=== PATIENT | female | born 1935 | race Caucasian/White ===

== ENCOUNTER 2016-09-25 11:33 | Inpatient (IN) | payer MEDICARE, MEDICAID ==
[2016-09-25] MEDS ORDERED: Acetaminophen TAB* 325 MG ONE (11:41)
[2016-09-25] MEDS ORDERED: Acetaminophen SUPP* 650 MG SUPP ONE (11:43)
[2016-09-25] MEDS ORDERED: Piperac/Tazob 3.375 gm in NS* 3.375 GM/100 ML BAG IVPB ONE (11:46)
[2016-09-25] MEDS ORDERED: NS 0.9% 1000 ML* 1,000 ML IV ONE ×3 (11:47→14:50)
[2016-09-25] MEDS ORDERED: Acetaminophen SUPP* 650 MG SUPP PR ONE (11:48)
[2016-09-25 12:16] LABS: Hematocrit 47 % (35-47); Hemoglobin 14.7 g/dl (12.0-16.0); Mean Corpuscular HGB Conc 32 g/dl (31-36); Mean Corpuscular Hemoglobin 28 pg (27-31); Mean Corpuscular Volume 89 fL (80-97); Mean Platelet Volume 10 um3 (7.4-10.4); Red Blood Count 5.29 10^6/ul (4.0-5.4); Red Cell Distribution Width 15 % (10.5-15); White Blood Count 43.4 10^3/ul (3.5-10.8)
[2016-09-25 12:17] LABS: Add Diff/Slide Review? Slide Review Added; Comments Flag Yes; Urine Bacteria Absent (Absent); Urine Bilirubin Negative (Negative); Urine Glucose Negative (Negative); Urine Nitrite Negative (Negative)
[2016-09-25 12:27] LABS: BUN/Creatinine Ratio 39.2 (8-20); Calcium 9.4 mg/dL (8.6-10.3); EGFR African American 67.2 (>60); EGFR Non-African American 52.3 (>60); Globulin 3.8 g/dL (2-4); Potassium 3.4 mmol/L (3.5-5.0); Total Bilirubin 0.6 mg/dL (0.2-1.0); Total Protein 6.8 g/dL (6.4-8.9)
--- NOTE | 2016-09-25 12:28 | RAD ---
INDICATION: Fever. Altered mental status COMPARISON: October 29, 2013 TECHNIQUE: An AP portable view obtained at 1225 hours is submitted. FINDINGS: Bones/Soft Tissues: There are no acute bony findings. Cardiomediastinal: The cardiomediastinal silhouette is normal. Lungs: There is a right upper lobe infiltrate. There is also mild diffuse increased interstitial prominence which may reflect mild interstitial congestion. Pleura: There are no pleural effusions. Other: None IMPRESSION: ] RIGHT UPPER LOBE INFILTRATE. SUSPECT MILD INTERSTITIAL CONGESTION
[2016-09-25 12:34] LABS: Troponin I 0.14 ng/mL (<0.04)
[2016-09-25] MEDS: Vancomycin(*) 1,000 MG in NS 0.9% 250 ML* 250 ML IVPB ONE ×2 (12:43→14:48)
[2016-09-25] MEDS ORDERED: Aspirin Low Dose CHEW TAB* 81 MG PO ONE (12:46)
[2016-09-25 13:32] LABS: Magnesium 2.6 mg/dL (1.9-2.7); Phosphorus 3.3 mg/dL (2.5-5.0)
--- NOTE | 2016-09-25 13:49 | HP ---
H&P (Free Text) History and Physical: CRITICAL CARE MEDICINE DATE: 09/25/16 TIME: 1245 PRIMARY CARE PROVIDER: Unknown at this time REFERRING PROVIDER: Eyad REASON/CHIEF COMPLAINT: sepsis HISTORY OF PRESENT ILLNESS: 81 F, resident of [facility], presenting with declining functional status over the last week; usually ambulatory and talkative and this has declined with dec po intake. Mild temp 38.3C on admission , but tachy and tachpneic. Concerns for sepsis with bundle initiated and hospitalist alerted. CXR with early and somewhat diffuse disease, more consolidation starting in RUL. Pt mentation was quite impaired but has improved some in the ED already with fluids and O2. Admit to ICU. Prior DNR REVIEW OF SYSTEMS: As per HPI; limited from pt, but she denies pain at present PAST MEDICAL HISTORY: As per HPI. HTN, Lipids, PVD with L CEA, communicating hydrocephalus, dementia, CLL MEDICATIONS: Reviewed per records and MAR. ALLERGIES: Reviewed per records but unclear reactions SOCIAL HISTORY: Reviewed. FAMILY HISTORY: Noncontributory at present. PHYSICAL EXAM: Vital Signs: Reviewed. hr 110s, sbp 130s, RR up to 30, and sat 93% 4L (I increased to 15L due to flow needs) Neurologic: awake, mild alertness but can somewhat protect self. Takes significant promoting to cooperate; VALENTINE and non focal. HEENT: anicteric, perrl, mm dry Cardiovascular: tachy, distant Respiratory: diffuse rhonchi and end exp wheeze; rate fast but not working too hard Abdomen: soft, nt Extremities: warm to touch Access: per LABS: Reviewed. IMAGING: Reviewed. CXR as above. 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 There is some ant st depressions, likely demand and rate related currently but no acute injury current. MEDICATIONS: Reviewed. Recieved zosyn and vanco already ASSESSMENT: 81 F with multiple co-morbidites presenting with severe sepsis secondary to pna (maybe viral +/- bacterial), mod septic encephalopathy, acute hypoxic resp failure, demand ischemia with elevated troponin, acute renal failure (Cr >1, from baseline ~0.6 with low muscle mass), hypovolemic hypernatremia, lactic acidosis, CLL and dementia. PLAN: Neurologic: tolerating at present and on an improvement curve. continued support. Cardiovascular: Perfusion state better now but still with intravascular and interstitial volume depletion needing resuscitation. 2L NS in ED followed by 2 more liter LR at 200ml/hr should hopefully load her enough without overload. I am worried about fluid sequestration towards her lung parenchyma given her acute lung injury. follow up her needs. CAn check echo when stabilized and would f/u another ecg. keep asa, stain. Respiratory: Increased flow and place on HFO2 to alleviate wob that will tire her mechanics and with fluid sequestration worry. Hopefully she can avoid intubation but may need to overcome ailment. Nebs prn. Gastrointestinal: can tolerate diet when mental status allows but that could be a bit. utilize sup and f/u her nutrional needs as already behind from her outpt setting. Renal/Metabolic: acute insult, hopefully still just pre-renal at this point and can improve with IVF. Water> salt deficit but will correct with isotonic fluid for now. f/u I/os. Infectious Disease: add azithro for atypical coverage for now and f/u bc. If intubated would anticiapte bal. Sputum may not be a good specimen in her. Flu is negative but still seeming like a viral ailment. Support and continued azithro, zosyn and vanco for now. Hematology: underlying CLL with no changes needed. f/u counts. on asa. Endocrine: glu mildly up. no steroid need as of yet Musculoskeletal: progressive mobility Psych/Social: social work support and will look to update family Supportive and preventative care as ordered. Vaccine: apparently has a flu vaccine allergy SUP: ppi VTE prophylaxis: heparin Disposition: ICU Code Status: DNR Critical Care Time: 55min Dannielle Rosa DO
[2016-09-25] MEDS ORDERED: Haloperidol INJ IV/IM* 5 MG/ML AMP IV SLOW PU PRN (14:13)
[2016-09-25] MEDS ORDERED: Albuterol/Ipratropium NEB.SOL* Albuterol 2.5 MG/Ipratropium 0.5 MG 3 ML INH PRN (14:13)
[2016-09-25] MEDS ORDERED: Ondansetron INJ* 2 MG/ML VIAL IV PRN (14:13)
[2016-09-25] MEDS: Azithromycin IV(*) 500 MG in NS 0.9% 250 ML* 250 ML IVPB SCH (14:23)
--- NOTE | 2016-09-25 14:33 | PN ---
Progress Note - Progress Note Note: CRITICAL CARE MEDICINE DATE: 09/25/16 TIME: 1345 D/w Pts daughter at bedside and (Bruse - Proxy) via the phone. We discussed dx adn prognosis. Explained HFO2 need and hopeful to avoid MV, but they would currently accept this if needed but may decline eventually. Daughter is a bit more against intubation since she is concerned that her mothers quality of life is already so poor. They are in agreement with DNR and we may re -discuss intubation status later today with husbands anticipated arrival. They otherwise express understanding of plans of care. Disposition: ICU Code Status: DNR; trial intubation currently (but would like to avoid) Critical Care Time: additional 20min F. Marcial Rosa,
[2016-09-25] MEDS: Piperac/Tazob 3.375 gm in NS* 3.375 GM/100 ML BAG IVPB SCH ×2 (16:03→23:50)
[2016-09-25] MEDS: Heparin VIAL(*) 5000 UNITS/ML VIAL (FIVE THOUSAND) SUBCUT SCH (21:04)
[2016-09-25] MEDS: Morphine INJ* 2 MG/ML 1 ML CARPUJECT IV PRN (21:37)
[2016-09-26] MEDS: Morphine INJ* 2 MG/ML 1 ML CARPUJECT IV PRN ×2 (00:42→18:41)
[2016-09-26] MEDS: Heparin VIAL(*) 5000 UNITS/ML VIAL (FIVE THOUSAND) SUBCUT SCH ×3 (05:25→21:04)
[2016-09-26 05:46] LABS: Hematocrit 38 % (35-47); Hemoglobin 11.9 g/dl (12.0-16.0); Mean Corpuscular HGB Conc 32 g/dl (31-36); Mean Corpuscular Hemoglobin 28 pg (27-31); Mean Corpuscular Volume 88 fL (80-97); Mean Platelet Volume 9 um3 (7.4-10.4); Red Blood Count 4.24 10^6/ul (4.0-5.4); Red Cell Distribution Width 16 % (10.5-15); White Blood Count 31.8 10^3/ul (3.5-10.8)
[2016-09-26 05:54] LABS: Add Diff/Slide Review? Slide Review Added; Comments Flag Yes
[2016-09-26 06:01] LABS: BUN/Creatinine Ratio 35.3 (8-20); Calcium 8.1 mg/dL (8.6-10.3); EGFR African American 107.3 (>60); EGFR Non-African American 83.5 (>60); Phosphorus 1.9 mg/dL (2.5-5.0); Potassium 4.1 mmol/L (3.5-5.0)
[2016-09-26 06:08] LABS: Troponin I 0.08 ng/mL (<0.04)
[2016-09-26] MEDS: Piperac/Tazob 3.375 gm in NS* 3.375 GM/100 ML BAG IVPB SCH ×3 (07:42→23:27)
--- NOTE | 2016-09-26 09:18 | ED ---
Harish Akins Matthew, scribed for Earl Taylor MD on 09/25/16 at 1215 . HPI Febrile Illness - HPI Summary HPI Summary: A 81 y/o female presents to the ED by heriberto, because the patient is febrile and lethargic. The patient is non-verbal with no purposeful movements. She is normally A&Ox2. A compete HPI is unable to be obtained, because the patient is demented. The patient is a level 5 CAVEAT. - History of Current Complaint Hx From Patient Unobtainable Due To: Dementia - LEVEL 5 CAVEAT Timing: Constant Pain Intensity: 0 Associated Signs and Symptoms: Other: - Fever - Allergy/Home Medications Allergies/Adverse Reactions: Allergies Allergy/AdvReac Type Severity Reaction Status Date / Time Flu Virus Vaccine Allergy Unknown Verified 04/20/15 19:31 [From Flulaval] Reaction Details Thimerosal [From Flulaval] Allergy Unknown Verified 04/20/15 19:31 Reaction Details Tuberculin Purified Protein Allergy Unknown Verified 04/20/15 19:31 Derivat Reaction Details Home Medications: Home Medications Aricept 10 mg PO DAILY 09/25/16 [History Confirmed 09/25/16] Aspirin [Aspirin Childrens] 81 mg PO DAILY 09/25/16 [History Confirmed 09/25/16] Citalopram TAB* [Celexa TAB*] 10 mg PO DAILY 09/25/16 [History Confirmed ] Cyanocobalamin INJ * [Vitamin B12 INJ *] 1,000 mcg IM MONTHLY 09/25/16 [History Confirmed 09/25/16] Multiple Vitamins W/ Minerals [[facility] Formul] 1 tab PO DAILY [History Confirmed 09/25/16] PMH/Surg Hx/FS Hx/Imm Hx Endocrine/Hematology History: Denies: Hx Bone Marrow Disease, Hx Diabetes, Hx Sickle Cell Disease, Hx Thyroid Disease, Hx Anemia Cardiovascular History: Reports: Hx Hypertension Denies: Hx Angina, Hx Cardiomegaly, Hx Congestive Heart Failure, Hx Coronary Artery Disease, Hx Pacemaker/ICD, Hx Peripheral Vascular Disease, Hx Rheumatic Fever, Hx Valvular Heart Disease, Other Cardiovascular Problems/Disorders Respiratory History: Denies: Hx Asthma, Hx Pulmonary Edema, Hx Pulmonary Embolism, Hx Sleep Apnea , Other Respiratory Problems/Disorders GI History: Denies: Hx Cirrhosis, Hx Crohn's Disease, Hx Gastroesophageal Reflux Disease , Hx Hiatal Hernia, Hx Irritable Bowel, Hx Jaundice, Hx Ulcer, Other GI Disorders History: Denies: Hx Dialysis, Hx Kidney Infection, Hx Kidney Stones, Hx Renal Disease , Other Problems/Disorders Musculoskeletal History: Denies: Hx Arthritis, Hx Bursitis, Hx Tendonitis, Other Musculoskeletal History Sensory History: Reports: Hx Contacts or Glasses Denies: Hx Cataracts, Hx Glaucoma, Hx Hearing Aid Opthamlomology History: Reports: Hx Contacts or Glasses Denies: Hx Cataracts, Hx Glaucoma Neurological History: Reports: Other Neuro Impairments/Disorders - numbness on feet and legs Denies: Hx Headaches, Hx Migraine, Hx Nerve Disease, Hx Seizures Psychiatric History: Reports: Hx Depression Denies: Hx Anxiety, Hx Panic Disorder - Cancer History Hx Chemotherapy: No - Surgical History Surgery Procedure, Year, and Place: NECK SURGERY 2002 Hx Anesthesia Reactions: No Infectious Disease History: No Infectious Disease History: Reports: Hx Shingles - years ago Denies: Hx Hepatitis, Traveled Outside the [place] in Last 30 Days - Family History Family History: No FHx of malignant hyperthermia. No FHx of anesthesia reaction - Social History Alcohol Use: None Alcohol Amount: occ. Substance Use Type: Reports: None Smoking Status (MU): Former Smoker Review of Systems - ROS Summary Review of Systems Summary: A complete HPI is unable to be obtained, because the patient is non-verbal with dementia. The patient is a LEVEL 5 CAVEAT. All Other Systems Reviewed And Are Negative: Yes Physical Exam - Summary Physical Exam Summary: GENERAL: The patient is ill-appearing, warm, diaphoretic HEENT: Head is normocephalic, atraumatic, pupils 2mm bilaterally, mucous membranes moist, no erythema, no discharge, no lesions, neck is supple, trachea is midline, no JVD CARDIAC: Regular rhythm and tachycardic, S1, S2, no rub, no murmur, no gallop, 2 + radial and pedal pulses bilaterally RESPIRATORY: Clear to auscultation bilaterally with no rales, rhonchi, or wheezes, non-tender ABDOMEN: Bowel sounds positive, no bruit, soft, non-tender, no CVA tenderness EXTREMITIES: No edema, moving all extremities in a grossly normal manner NEUROLOGICAL: The patient tracks movements, but has non purposeful movements. She is non-verbal. Triage Information Reviewed: Yes Vital Signs On Initial Exam: Initial Vitals Temp Pulse Resp BP Pulse Ox 101 F 129 31 157/92 91 09/25/16 11:35 09/25/16 11:35 09/25/16 11:35 09/25/16 11:35 09/25/16 11:35 Vital Signs Reviewed: Yes Diagnostics - Vital Signs Vital Signs Temp Pulse Resp BP Pulse Ox 09/25/16 11:47 90 09/25/16 11:35 101 F 129 31 157/92 91 - Laboratory Lab Results: Lab Results 09/25/16 09/25/16 09/25/16 Range/Units 11:51 11:51 11:51 WBC 43.4 H (3.5-10.8) 10^3/ul RBC 5.29 (4.0-5.4) 10^6/ul Hgb 14.7 (12.0-16.0) g/dl Hct 47 (35-47) % MCV 89 (80-97) fL MCH 28 (27-31) pg MCHC 32 (31-36) g/dl RDW 15 (10.5-15) % Plt Count 286 (150-450) 10^3/ul MPV 10 (7.4-10.4) um3 Neut % (Auto) 25.7 L (38-83) % Lymph % (Auto) 72.1 H (25-47) % Hyde % (Auto) 2.2 (1-9) % Eos % (Auto) 0 (0-6) % Baso % (Auto) 0 (0-2) % Absolute Neuts (auto) 11.1 H (1.5-7.7) 10^3/ul Absolute Lymphs (auto) 31.3 H (1.0-4.8) 10^3/ul Absolute Monos (auto) 1.0 H (0-0.8) 10^3/ul Absolute Eos (auto) 0 (0-0.6) 10^3/ul Absolute Basos (auto) 0 (0-0.2) 10^3/ul Absolute Nucleated RBC 0.05 10^3/ul Nucleated RBC % 0.1 INR (Anticoag Therapy) 1.29 H (0.89-1.11) APTT 26.8 (26.0-36.3) seconds VBG pH (7.33-7.43) VBG pCO2 (41-51) mmHg VBG pO2 (35-45) mmHg VBG HCO3 (24-28) mmol/L VBG O2 Saturation (70-80) % VBG Base Excess (0-4) Sodium (133-145) mmol/L Potassium (3.5-5.0) mmol/L Chloride (101-111) mmol/L Carbon Dioxide (22-32) mmol/L Anion Gap (2-11) mmol/L BUN (6-24) mg/dL Creatinine (0.51-0.95) mg/dL Est GFR ( Amer) (>60) Est GFR (Non-Af Amer) (>60) BUN/Creatinine Ratio (8-20) Glucose (70-100) mg/dL Lactic Acid (0.5-2.0) mmol/L Calcium (8.6-10.3) mg/dL Phosphorus (2.5-5.0) mg/dL Magnesium (1.9-2.7) mg/dL Total Bilirubin (0.2-1.0) mg/dL AST (13-39) U/L ALT (7-52) U/L Alkaline Phosphatase (34-104) U/L Troponin I (<0.04) ng/mL B-Natriuretic Peptide ( - 100) pg/mL Total Protein (6.4-8.9) g/dL Albumin (3.2-5.2) g/dL Globulin (2-4) g/dL Albumin/Globulin Ratio (1-3) Urine Color Kira Urine Appearance Cloudy Urine pH 5.0 (5-9) Ur Specific Vernon 1.028 (1.010-1.030) Urine Protein 2+(100 mg/dl) H (Negative) Urine Ketones 1+ H (Negative) Urine Blood 2+ H (Negative) Urine Nitrate Negative (Negative) Urine Bilirubin Negative (Negative) Urine Urobilinogen Negative (Negative) Ur Leukocyte Esterase Negative (Negative) Urine WBC (Auto) 2+(11-20/hpf) H (Absent) Urine RBC (Auto) 3+(>10/hpf) H (Absent) Urine Bacteria Absent (Absent) Urine Glucose Negative (Negative) Urine Ascorbic Acid * H (Negative) Influenza A (Rapid) (Negative) Influenza B (Rapid) (Negative) 09/25/16 09/25/1617 Range/Units 11:51 11:51 11:51 WBC (3.5-10.8) 10^3/ul RBC (4.0-5.4) 10^6/ul Hgb (12.0-16.0) g/dl Hct (35-47) % MCV (80-97) fL MCH (27-31) pg MCHC (31-36) g/dl RDW (10.5-15) % Plt Count (150-450) 10^3/ul MPV (7.4-10.4) um3 Neut % (Auto) (38-83) % Lymph % (Auto) (25-47) % Hyde % (Auto) (1-9) % Eos % (Auto) (0-6) % Baso % (Auto) (0-2) % Absolute Neuts (auto) (1.5-7.7) 10^3/ul Absolute Lymphs (auto) (1.0-4.8) 10^3/ul Absolute Monos (auto) (0-0.8) 10^3/ul Absolute Eos (auto) (0-0.6) 10^3/ul Absolute Basos (auto) (0-0.2) 10^3/ul Absolute Nucleated RBC 10^3/ul Nucleated RBC % INR (Anticoag Therapy) (0.89-1.11) APTT (26.0-36.3) seconds VBG pH (7.33-7.43) VBG pCO2 (41-51) mmHg VBG pO2 (35-45) mmHg VBG HCO3 (24-28) mmol/L VBG O2 Saturation (70-80) % VBG Base Excess (0-4) Sodium 152 H (133-145) mmol/L Potassium 3.4 L (3.5-5.0) mmol/L Chloride 112 H (101-111) mmol/L Carbon Dioxide 27 (22-32) mmol/L Anion Gap 13 H (2-11) mmol/L BUN 40 H (6-24) mg/dL Creatinine 1.02 H (0.51-0.95) mg/dL Est GFR ( Amer) 67.2 (>60) Est GFR (Non-Af Amer) 52.3 (>60) BUN/Creatinine Ratio 39.2 H (8-20) Glucose 137 H (70-100) mg/dL Lactic Acid 3.0 H* (0.5-2.0) mmol/L Calcium 9.4 (8.6-10.3) mg/dL Phosphorus 3.3 (2.5-5.0) mg/dL Magnesium 2.6 (1.9-2.7) mg/dL Total Bilirubin 0.60 (0.2-1.0) mg/dL AST 18 (13-39) U/L ALT 12 (7-52) U/L Alkaline Phosphatase 66 (34-104) U/L Troponin I 0.14 H* (<0.04) ng/mL B-Natriuretic Peptide 458 H ( - 100) pg/mL Total Protein 6.8 (6.4-8.9) g/dL Albumin 3.0 L (3.2-5.2) g/dL Globulin 3.8 (2-4) g/dL Albumin/Globulin Ratio 0.8 L (1-3) Urine Color Urine Appearance Urine pH (5-9) Ur Specific Vernon (1.010-1.030) Urine Protein (Negative) Urine Ketones (Negative) Urine Blood (Negative) Urine Nitrate (Negative) Urine Bilirubin (Negative) Urine Urobilinogen (Negative) Ur Leukocyte Esterase (Negative) Urine WBC (Auto) (Absent) Urine RBC (Auto) (Absent) Urine Bacteria (Absent) Urine Glucose (Negative) Urine Ascorbic Acid (Negative) Influenza A (Rapid) (Negative) Influenza B (Rapid) (Negative) 09/25/16 09/25/16 Range/Units 12:27 13:05 WBC (3.5-10.8) 10^3/ul RBC (4.0-5.4) 10^6/ul Hgb (12.0-16.0) g/dl Hct (35-47) % MCV (80-97) fL MCH (27-31) pg MCHC (31-36) g/dl RDW (10.5-15) % Plt Count (150-450) 10^3/ul MPV (7.4-10.4) um3 Neut % (Auto) (38-83) % Lymph % (Auto) (25-47) % Hyde % (Auto) (1-9) % Eos % (Auto) (0-6) % Baso % (Auto) (0-2) % Absolute Neuts (auto) (1.5-7.7) 10^3/ul Absolute Lymphs (auto) (1.0-4.8) 10^3/ul Absolute Monos (auto) (0-0.8) 10^3/ul Absolute Eos (auto) (0-0.6) 10^3/ul Absolute Basos (auto) (0-0.2) 10^3/ul Absolute Nucleated RBC 10^3/ul Nucleated RBC % INR (Anticoag Therapy) (0.89-1.11) APTT (26.0-36.3) seconds VBG pH 7.45 H (7.33-7.43) VBG pCO2 39 L (41-51) mmHg VBG pO2 57 H (35-45) mmHg VBG HCO3 27.0 (24-28) mmol/L VBG O2 Saturation 91.0 H (70-80) % VBG Base Excess 3.0 (0-4) Sodium (133-145) mmol/L Potassium (3.5-5.0) mmol/L Chloride (101-111) mmol/L Carbon Dioxide (22-32) mmol/L Anion Gap (2-11) mmol/L BUN (6-24) mg/dL Creatinine (0.51-0.95) mg/dL Est GFR ( Amer) (>60) Est GFR (Non-Af Amer) (>60) BUN/Creatinine Ratio (8-20) Glucose (70-100) mg/dL Lactic Acid (0.5-2.0) mmol/L Calcium (8.6-10.3) mg/dL Phosphorus (2.5-5.0) mg/dL Magnesium (1.9-2.7) mg/dL Total Bilirubin (0.2-1.0) mg/dL AST (13-39) U/L ALT (7-52) U/L Alkaline Phosphatase (34-104) U/L Troponin I (<0.04) ng/mL B-Natriuretic Peptide ( - 100) pg/mL Total Protein (6.4-8.9) g/dL Albumin (3.2-5.2) g/dL Globulin (2-4) g/dL Albumin/Globulin Ratio (1-3) Urine Color Urine Appearance Urine pH (5-9) Ur Specific Vernon (1.010-1.030) Urine Protein (Negative) Urine Ketones (Negative) Urine Blood (Negative) Urine Nitrate (Negative) Urine Bilirubin (Negative) Urine Urobilinogen (Negative) Ur Leukocyte Esterase (Negative) Urine WBC (Auto) (Absent) Urine RBC (Auto) (Absent) Urine Bacteria (Absent) Urine Glucose (Negative) Urine Ascorbic Acid (Negative) Influenza A (Rapid) Negative (Negative) Influenza B (Rapid) Negative (Negative) Result Diagrams: 09/26/16 05:30 09/26/16 05:30 Lab Statement: Any lab studies that have been ordered have been reviewed, and results considered in the medical decision making process. - Radiology CXR Xray Interpretation: Positive (See Comments) - IMPRESSION: ] RIGHT UPPER LOBE INFILTRATE. SUSPECT MILD INTERSTITIAL CONGESTION Radiology Interpretation Completed By: Radiologist - EKG 11:47 Cardiac Rate: Tachycardia - 129 bpm EKG Rhythm: Sinus Tachycardia EKG Interpretation: mild ST depression in V2, V3, V4, V5; No ST elevation Re-Evaluation - Re-Evaluation First Eval Re-Evaluation Time: 12:30 Change: Improved Comment: After 1L of fluid, the patient is verbal. She now knows her name and where she is from. Course/Dx - Diagnoses Provider Diagnoses: Sepsis, uti, cml - Provider Notifications Discussed Care Of Patient With: Dr. Mayo (Hospitalist) at 12:35 -- Notified of patient's history and recommends Dr. Rosa see's the patient. Discharge - Discharge Plan Condition: Stable Disposition: ADMITTED TO [facility] The documentation as recorded by the Harish soto Matthew accurately reflects the service I personally performed and the decisions made by me, Earl Taylor MD.
[2016-09-26] MEDS ORDERED: Potassium Phosphate IV* 15 MMOLE in NS 0.9% 250 ML* 250 ML IVPB ONE (10:52)
[2016-09-26] MEDS: Albuterol/Ipratropium NEB.SOL* Albuterol 2.5 MG/Ipratropium 0.5 MG 3 ML INH SCH ×2 (11:11→19:11)
--- NOTE | 2016-09-26 11:18 | PN ---
Progress Note - Progress Note Note: CRITICAL CARE MEDICINE DATE: 09/26/16 TIME: 1005 PRIMARY CARE PROVIDER: Dr. Rodriguez SUBJECTIVE: Patient seen and examined. Son present and updated. Pt w/o complaints. Denies sob. PHYSICAL EXAM: Vital Signs: Reviewed. hr 90s, sbp 130s, RR in low 20s, and sat 94% 30L 80%. voiding overnight Neurologic: awake, mild alteredness, and baseline dementia. HEENT: anicteric, perrl, mmm Cardiovascular: distant Respiratory: still with diffuse rhonchi and dec sounds on right upper; exp wheeze Abdomen: soft, nt Extremities: warm to touch Access: per LABS: Reviewed. IMAGING: Reviewed. MEDICATIONS: Reviewed. ASSESSMENT: 81 F Severe sepsis secondary to pna (viral > bacterial) Mod septic encephalopathy - improved some Acute hypoxic resp failure - stabilized Elevated troponin with type 2 ischemia - improved Acute renal failure, prerenal, improved Hypovolemic hypernatremia - improved Lactic acidosis - cleared CLL Dementia PLAN: Neurologic: tolerating at present and on an improved. continued support. dc haldol. resume celexa and aricept tomorrow Cardiovascular: Perfusion stable. Intravasc vol resuscitated and interstitial at optivolemic state and will allow automobilization with flow phase hopefully. Can intake po water. Echo pending to eval. asa, stain. Respiratory: Maintain on high flow today with a slwo wean to maintain her support given her baseline functional status. Certainly has blossomed from a resp standpoint post fluid and again allow her to mobilze versus forced diuresis perhaps soon. Flutter valve tx. Add nebs and even steroids to combat her wheeze associated and will need significant pulm clearance and needs to maintain recruitment. If falling short, may need early intermittent ppv with cpap/downs flow or even nocturnal bipap. f/u. Gastrointestinal: tolerate clear diet with healthy water intake hopefully today. Look to advance diet and nutritional needs as tolerable tomorrow. Renal/Metabolic: better. f/u water intake and uout mobilization. Infectious Disease: Still seeming viral like ailment, but certainly treating for pna, with zosyn and azithro. CAn hold off on further vanco given neg mrsa screen and lower probability, but if fever or worse, would consider resumption. Hematology: underlying CLL with no acute needs there. on asa. Endocrine: glu ok. would give a course of steroids to combat wheeze associated with pulm clearance and reactive airways currently. Musculoskeletal: progressive mobility Psych/Social: social work support. son updated at length, he expressed understanding and appreciation. Supportive and preventative care as ordered. SUP: po VTE prophylaxis: heparin Disposition: ICU Code Status: DNR; ok for trial intubation Critical Care Time: 45min FLiang Rosa DO
--- NOTE | 2016-09-26 11:48 | ECHO ---
Patient: LARRY ANDRES V [facility] Rec#: [id number] : 1935 Date: 09/26/2016 Age: 81y Height: 152.4 cm / 60.0 in Weight: 62.1 kg / 136.9 lbs Sex: F BSA: 1.59 Room#: ICU 7 Admit Date#: 09/25/2016 Type: Inpatient Referring: Marv oRsa Reading: Susie Urbano MD Exploration Driller: Mary Tran RN RDCS CC: Napoleon Rodriguez MD Transthoracic Echocardiogram Indication: Sepsis, elevated troponin levels BP: 154/70 HR: 99 Rhythm: NSR with PACs Findings History: HTN, dyslipidemia, carotid artery disease, CLL, dementia Technical Comments: The study quality is fair. Left Ventricle: The left ventricular chamber size is normal. Septal wall hypertrophy is observed. There is a focal wall motion abnormality present.The inferior/posterior wall is severely hypokineitic to akinetic at the base, seen on parasternal and apical 2 and 3 chamber views. There is mildly decreased left ventricular systolic function. The estimated ejection fraction is 40-45%. There is an E to A reversal in the mitral valve flow pattern suggestive of diastolic dysfunction. Left Atrium: The left atrial chamber size is normal. Right Ventricle: The right ventricular chamber size and systolic function are within normal limits. The right ventricle wall thickness is mildly increased. Right Atrium: The right atrial cavity size is normal. The interatrial septum appears lipomatous. Aortic Valve: The aortic valve structure is not well visualized. The aortic valve leaflets are moderately thickened. There is mild to moderate aortic regurgitation. P 1/2 is suggestive of moderate AI, but color Doppler looks mild and no reversal of low in the descending aorta. There is no evidence of aortic stenosis. The measured aortic regurgitation pressure half-time is 393 msec. Mitral Valve: There is mitral annular calcification. The mitral valve leaflets are mildly thickened. There is mild mitral regurgitation. There is no evidence of mitral stenosis. Tricuspid Valve: The tricuspid valve leaflets are normal. There is trace tricuspid regurgitation. Unable to estimate the right ventricular systolic pressure. Pulmonic Valve: The pulmonic valve structure is not well visualized. Pericardium: There is a small pericardial effusion. There are no signs of significant hemodynamic compromise. The pericardial effusion is seen adjacent to the right ventricle. A pericardial fat pad is visualized. Aorta: There is no dilatation of the ascending aorta. There is no dilatation of the aortic arch. The aortic root is normal in size. Pulmonary Artery: The main pulmonary artery is not well visualized. Venous: The inferior vena cava is dilated. There is a greater than 50% respiratory change in the inferior vena cava dimension. Conclusions The left ventricular chamber size is normal with septal wall hypertrophy. .The inferior/posterior wall is severely hypokineitic to akinetic at the base, the rest of the myocardium shows normal wall motion and contractility. The estimated ejection fraction is 40-45%. There is an E to A reversal in the mitral valve flow pattern suggestive of diastolic dysfunction. Right ventricular hypertrophy with nromal systolic function. There is mild to moderate aortic regurgitation and aortic valve sclerosis. There is mild mitral regurgitation. There is a small pericardial effusion, no evidence of filling compromise. The inferior vena cava is dilated. No prior echo available to compare. Measurements Name Value Normal Range RVDdMajor (2D) 2.2 cm (2.2 - 4.4) RVAW (2D) 0.7 cm (0.2 - 0.5) RAd ISD 4CH 3.8 cm (3.4 - 4.9) RA (A4C)W 3.1 cm (2.9 - 4.6) IVSd (2D) 1.2 cm (0.6 - 1) LVPWd (2D) 1 cm (0.6 - 1) LVIDd (2D) 3.7 cm (3.6 - 5.4) LVIDs (2D) 2.9 cm - LV FS (2D) 22 % (25 - 45) Aortic Annulus 1.8 cm (1.4 - 2.6) Ao root diameter (2D) 2.7 cm (2.1 - 3.5) Ascending Ao 2.6 cm (2.1 - 3.4) Aortic arch 2.3 cm (1.8 - 3.4) LA dimension (AP) 2D 3.6 cm (2.3 - 3.8) LAd ISD 4CH 5 cm (2.9 - 5.3) LA ISD 4CH W 3.2 cm (2.5 - 4.5) Name Value Normal Range LA ESV SP 4CH (A/L) 31 ml - LA ESV SP 2CH (A/L) 32 ml - LA ESV BP (A/L) 34 ml - LA ESV BP (A/L) index 21.3 ml/m2 - LA ESV SP 4CH (MOD) 29 ml - LA ESV SP 2CH (MOD) 30 ml - Name Value Normal Range MV E-wave Vmax 0.65 m/sec - MV deceleration time 208 msec - MV A-wave Vmax 1 m/sec - MV E:A ratio 0.63 ratio - LV septal e' Vmax 0.06 m/sec - LV lateral e' Vmax 0.09 m/sec - LV E:e' septal ratio 10.8 ratio - LV E:e' lateral ratio 7.2 ratio - Name Value Normal Range AV Vmax 1.5 m/sec - LVOT Vmax 1.3 m/sec - AR PHT 393 msec - ZACHARY Vmax 0.68 m/sec - Name Value Normal Range IVC diameter 2.4 cm - Name Value Normal Range PV Vmax 0.88 m/sec -
[2016-09-26] MEDS: predniSONE TAB* 20 MG PO SCH (11:53)
[2016-09-26] MEDS: Azithromycin IV(*) 500 MG in NS 0.9% 250 ML* 250 ML IVPB SCH (13:43)
[2016-09-27] MEDS: Morphine INJ* 2 MG/ML 1 ML CARPUJECT IV PRN ×2 (02:15→18:10)
[2016-09-27 05:27] LABS: Hematocrit 38 % (35-47); Hemoglobin 11.8 g/dl (12.0-16.0); Mean Corpuscular HGB Conc 31 g/dl (31-36); Mean Corpuscular Hemoglobin 28 pg (27-31); Mean Corpuscular Volume 88 fL (80-97); Mean Platelet Volume 10 um3 (7.4-10.4); Red Blood Count 4.29 10^6/ul (4.0-5.4); Red Cell Distribution Width 16 % (10.5-15)
[2016-09-27 05:40] LABS: BUN/Creatinine Ratio 29.2 (8-20); Calcium 8.2 mg/dL (8.6-10.3); EGFR African American 113.1 (>60); EGFR Non-African American 87.9 (>60); Magnesium 2.1 mg/dL (1.9-2.7); Phosphorus 2.5 mg/dL (2.5-5.0); Potassium 3.8 mmol/L (3.5-5.0)
[2016-09-27] MEDS: Heparin VIAL(*) 5000 UNITS/ML VIAL (FIVE THOUSAND) SUBCUT SCH ×3 (05:41→21:58)
[2016-09-27 06:02] LABS: Comments Flag Yes
[2016-09-27 06:03] LABS: Add Diff/Slide Review? Slide Review Added; White Blood Count 34.2 10^3/ul (3.5-10.8)
[2016-09-27 06:30] LABS: Macrocytosis 2+; Toxic Granulation 2+
[2016-09-27 06:31] LABS: Microcytosis 1+
[2016-09-27] MEDS: Albuterol/Ipratropium NEB.SOL* Albuterol 2.5 MG/Ipratropium 0.5 MG 3 ML INH SCH ×3 (07:24→20:04)
[2016-09-27] MEDS: Piperac/Tazob 3.375 gm in NS* 3.375 GM/100 ML BAG IVPB SCH ×3 (08:37→23:34)
[2016-09-27] MEDS: Donepezil TAB* 5 MG PO SCH (08:56)
[2016-09-27] MEDS: Citalopram TAB* 10 MG PO SCH (08:57)
[2016-09-27] MEDS: predniSONE TAB* 20 MG PO SCH (08:57)
[2016-09-27] MEDS ORDERED: Metolazone TAB* 5 MG PO ONE (11:47)
[2016-09-27] MEDS ORDERED: Potassium Chlor TAB* 20 MEQ TAB.ER PO ONE (11:49)
--- NOTE | 2016-09-27 11:59 | PN ---
Progress Note - Progress Note Note: CRITICAL CARE MEDICINE DATE: 09/27/16 TIME: 1015 SUBJECTIVE: Patient seen and examined. better again. PHYSICAL EXAM: Vital Signs: Reviewed. stable. Neurologic: awake, more alert. baseline dementia. HEENT: anicteric, perrl, mmm Cardiovascular: distant Respiratory: still with rhonchi and dec sounds; less wheeze Abdomen: soft, nt Extremities: warm to touch Access: per LABS: Reviewed. IMAGING: Reviewed. MEDICATIONS: Reviewed. ASSESSMENT: 81 F Severe sepsis secondary to pna (viral > bacterial) Mod septic encephalopathy - improved some Acute hypoxic resp failure - stabilized Elevated troponin with type 2 ischemia - improved Acute renal failure, prerenal, improved Hypovolemic hypernatremia - improved Lactic acidosis - cleared CLL Dementia PLAN: Neurologic: stable. home rx celexa and aricept Cardiovascular: Perfusion stable. Intravasc vol stable. bit of interstial fluid we can try to mobilize further today. Lasix and zaroxyln given remaining Na overload. Can drink fluid still. On asa, stain. echo revealing old inf aliment in concordance with ecg and component of AI. Respiratory: Maintain on high flow and weaning slowly. diuertic today. flutter. Need to mobilize. Not a great canidate for ppv recruitment with cpap although it may benefit her as she needs to prevent atelectasis. Try lasix instead. Steroids may be giving some benefit, but this is going to take time. Again, probably more viral. Gastrointestinal: tolerate clear diet and can advance as able to tolerate although would prefer she continues with liquids today. Renal/Metabolic: better. f/u mobilization. Infectious Disease: zosynx3/7 and azithro x3/5 day. cultures negative Hematology: underlying CLL with no acute needs there. on asa. Endocrine: glu ok. steroids pulse. Musculoskeletal: progressive mobility. pt eval Psych/Social: social work support. son updated via phone. Supportive and preventative care as ordered. SUP: po VTE prophylaxis: heparin Disposition: ICU for a few more days likely due to slow weaning. Code Status: DNR; ok for trial intubation Critical Care Time: 45min FLiang Rosa DO
[2016-09-27] MEDS ORDERED: Furosemide IV* 10 MG/ML VIAL (40 MG) IV SLOW PU ONE (13:00)
[2016-09-27] MEDS: Azithromycin IV(*) 500 MG in NS 0.9% 250 ML* 250 ML IVPB SCH (13:26)
[2016-09-28] MEDS: Morphine INJ* 2 MG/ML 1 ML CARPUJECT IV PRN ×3 (05:04→15:34)
[2016-09-28 05:12] LABS: Hematocrit 37 % (35-47); Hemoglobin 11.8 g/dl (12.0-16.0); Mean Corpuscular HGB Conc 32 g/dl (31-36); Mean Corpuscular Hemoglobin 28 pg (27-31); Mean Corpuscular Volume 87 fL (80-97); Mean Platelet Volume 10 um3 (7.4-10.4); Red Blood Count 4.27 10^6/ul (4.0-5.4); Red Cell Distribution Width 15 % (10.5-15)
[2016-09-28 05:13] LABS: Comments Flag Yes; White Blood Count 42.5 10^3/ul (3.5-10.8)
[2016-09-28 05:14] LABS: Add Diff/Slide Review? Slide Review Added
[2016-09-28 05:19] LABS: Albumin 2.4 g/dL (3.2-5.2); BUN/Creatinine Ratio 24.3 (8-20); Calcium 8.3 mg/dL (8.6-10.3); EGFR African American 97.4 (>60); EGFR Non-African American 75.7 (>60); Globulin 3.3 g/dL (2-4); Phosphorus 2.7 mg/dL (2.5-5.0); Total Bilirubin 0.6 mg/dL (0.2-1.0); Total Protein 5.7 g/dL (6.4-8.9)
[2016-09-28 05:24] LABS: Potassium 3.2 mmol/L (3.5-5.0)
[2016-09-28] MEDS: Heparin VIAL(*) 5000 UNITS/ML VIAL (FIVE THOUSAND) SUBCUT SCH ×3 (05:39→22:09)
[2016-09-28] MEDS: Albuterol/Ipratropium NEB.SOL* Albuterol 2.5 MG/Ipratropium 0.5 MG 3 ML INH SCH ×3 (07:32→19:37)
--- NOTE | 2016-09-28 07:34 | PN ---
Progress Note - Progress Note Note: Progress Note - Critical Care 24 hour events/significant events: -remains on HF overnight, noted to gradually becoming more hypoxic -now on 100% 40Lpm HF -sats upper 80s, rr 20-30 overnight, not tachypneic -not febrile, intermittent loose stool, incontinent -she awakens now, not very verbal, falls back asleep Vitals: Vital Signs: Vital Signs Temp 99.7 F 09/28/16 07:48 Pulse 82 09/28/16 07:35 Resp 90 09/28/16 07:35 BP 151/79 09/28/16 07:00 Pulse Ox 90 09/28/16 07:35 Intake & Output 09/27/16 09/28/16 09/28/16 18:59 06:59 18:59 Intake Total 1080 663 Balance 1080 663 Weight 141 lb 8.588 oz Intake: IV Fluids 563 NS (0.9%) 563 IVPB 190 NS (0.9%) 190 Oral 890 100 Other: Estimated Void Large Large # Bowel Movements 1 Estimated Stool Amount Small Medium # Voids 1 O2/Vent: HF 80% 30Lpm Medications: Acetaminophen (Tylenol Tab*) 650 mg PO Q4H PRN PRN Reason: FEVER/PAIN Albuterol/Ipratropium (Duoneb Neb.Sophia*) 1 neb INH Q4H PRN PRN Reason: SOB/WHEEZING Albuterol/Ipratropium (Duoneb Neb.Sophia*) 1 neb INH RT.TID [facility] Last Admin: 09/28/16 07:32 Dose: 1 neb Citalopram Hydrobromide (Celexa Tab*) 10 mg PO DAILY [facility] Last Admin: 09/27/16 08:57 Dose: 10 mg Donepezil HCl (Aricept Tab*) 10 mg PO DAILY [facility] Last Admin: 09/27/16 08:56 Dose: 10 mg Heparin Sodium (Porcine) (Heparin Vial(*)) 5,000 units SUBCUT Q8HR [facility] Last Admin: 09/28/16 05:39 Dose: 5,000 units Heparin Sodium (Porcine) (Heparin Flush Picc/Ml/Cvc(*)) 1 - 3 ml FLUSH 0600, 1800 [facility] PRN Reason: Protocol Last Admin: 09/28/16 05:32 Dose: Not Given Azithromycin 500 mg/ Sodium (Chloride) 250 mls @ 250 mls/hr IVPB Q24H [facility] Last Admin: 09/27/16 13:26 Dose: 250 mls/hr Piperacillin Sod/Tazobactam Sod (Zosyn 3.375 Gm In Ns Premix*) 3.375 gm in 100 mls @ 25 mls/hr IVPB Q8H [facility] Last Admin: 09/27/16 23:34 Dose: 25 mls/hr Morphine Sulfate (Morphine Inj (Syringe)*) 2 mg IV Q2H PRN PRN Reason: PAIN - MILD Last Admin: 09/28/16 05:04 Dose: 2 mg Ondansetron HCl (Zofran Inj*) 4 mg IV Q6H PRN PRN Reason: NAUSEA Prednisone (Deltasone Tab*) 40 mg PO DAILY [facility] Last Admin: 09/27/16 08:57 Dose: 40 mg Physical Exam: General - awakens, no distress, not diaphoretic, on HF now, nonverbal, moves spontaneously HEENT - no pallor, no icterus, moist mucous membranes Neck - no stridor, no jvd CVS - normal rate, normal rhythm, no murmur Resp - bilateral air entry, no rhales, no wheeze, no distress, no acc muscle use Abdomen - soft, nontender, nondistended, no rebound, bowel sounds present Ext - pulses+, warm, no edema Skin - intact, no breakdown, no dryness Neuro - awakens, moves all ext, sleepy but arousable with verbal and tactile stimuli Labs: Laboratory Results - last 24 hr 09/28/16 09/28/16 04:50 04:50 WBC 42.5 H RBC 4.27 Hgb 11.8 L Hct 37 MCV 87 MCH 28 MCHC 32 RDW 15 Plt Count 174 MPV 10 Neut % (Auto) 46.1 Lymph % (Auto) 52.3 H Lewis % (Auto) 1.5 Eos % (Auto) 0 Baso % (Auto) 0.1 Absolute Neuts (auto) 19.6 H Absolute Lymphs (auto) 22.2 H Absolute Monos (auto) 0.6 Absolute Eos (auto) 0 Absolute Basos (auto) 0.1 Absolute Nucleated RBC 0.06 Nucleated RBC % 0.2 Sodium 144 Potassium 3.2 L Chloride 105 Carbon Dioxide 31 Anion Gap 8 BUN 18 Creatinine 0.74 Est GFR ( Amer) 97.4 Est GFR (Non-Af Amer) 75.7 BUN/Creatinine Ratio 24.3 H Glucose 120 H Calcium 8.3 L Phosphorus 2.7 Magnesium 2.0 Total Bilirubin 0.60 AST 56 H ALT 32 Alkaline Phosphatase 124 H Total Protein 5.7 L Albumin 2.4 L Globulin 3.3 Albumin/Globulin Ratio 0.7 L Imaging: cxr 09/28 - bilateral multiple patchy infiltrates+, no effusion/ptx Assessment: 81y F admitted for hypoxia and cough. -Acute Hypoxic Respiratory Failure -ARDS -Pneumonia, suspected viral etiology -Severe Sepsis -Encephelopathy, metabolic/toxic/septic -EMILY, improved -NSTEMI, type 2? demand ischemia in setting of sepsis -Newly diagnosed mild-mod LV systolic dysfunction -CLL -Baseline Dementia Plan: Neuro - as per nursing, no change in status, no worsening lethargy. need to obtain baseline level once family arrives. cont aricept. neuro checks q4h. fall prec CVS - hemodyn stable, no hypotension noted. lasix x1 given yesterday. appears euvolemic otherwise. Will start NS infusion low dose, she is otherwise taking poor PO intake Resp - progressive hypoxia. HF not adequate enough support. WIll switch to bipap 08/18 to recruit. on prednisone po, switch to IV, cont nebulizers. cont azithro day 12/17 and zosyn day 12/17. culture neg, influenza neg. need to discuss with family about intubation trial if they desire. abg to be obtained 30min-1 hour after bipap initiation. GI - npo, pepcid IV dvt prophylaxis ID - zosyn 12/17, azithro 12/17; wbc elevated, likely from combination of CLL history and steroids and sepsis. afebrile. cont to monitor. influenza neg. Heme - leukocytosis, reactive? multifactorial from steroids/sepsis/cll; dvt prophylaxis. plt normal. no bleeding noted. Renal - start IVF hydration. Renal function normal now. K 3.2, replete with PO. start d5 NS 50cc/hour. DVT prophylaxis - heparin sq GI prophylaxis - pepcid Central Line - none Arterial Line - none Wu Cathetor - none Code status: DNR Disposition: ICU status for hypoxic respiratory failure; to discuss goals of care with family. 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
[2016-09-28] MEDS: Piperac/Tazob 3.375 gm in NS* 3.375 GM/100 ML BAG IVPB SCH ×2 (08:04→15:57)
--- NOTE | 2016-09-28 08:08 | RAD ---
INDICATION: Follow-up pneumonia COMPARISON: September 25, 2016 TECHNIQUE: An AP portable view obtained at 0557 hours is submitted. FINDINGS: Bones/Soft Tissues: There are no acute bony findings. Cardiomediastinal: The cardiomediastinal silhouette is normal. Lungs: There is patchy, bilateral, interstitial infiltrates with mild worsening. There is now obscuration left hemidiaphragm. Pleura: New small left-sided pleural effusion. Other: None IMPRESSION: BILATERAL INFILTRATES WITH MILD WORSENING.
[2016-09-28] MEDS ORDERED: Potassium Chlor TAB* 20 MEQ TAB.ER PO ONE (08:43)
[2016-09-28] MEDS ORDERED: methylPREDNISolone SOD 40 MG* 1 ML VIAL IV SCH (09:00)
[2016-09-28] MEDS ORDERED: D5NS 0.9% 1000 ML BAG* 1,000 ML IV SCH (09:00)
[2016-09-28] MEDS: Donepezil TAB* 5 MG PO SCH (09:32)
[2016-09-28] MEDS: Famotidine IV * 20 MG in NS 0.9% 100 ML* 100 ML IVPB SCH (09:32)
[2016-09-28] MEDS: Citalopram TAB* 10 MG PO SCH (09:33)
[2016-09-28] MEDS: KCL 20 MEQ/100 ML IVPREMIX* 20 MEQ/100 ML BAG IV SCH ×2 (10:00→13:06)
[2016-09-28 12:52] LABS: BIPAP yes; EPAP 7; FIO2 100; IPAP 14
[2016-09-28 12:56] LABS: PCO2 Arterial 38 mmHg (35-45)
--- NOTE | 2016-09-28 13:54 | PN ---
Progress Note - Progress Note Note: Discussion with family about goals of care and current medical condition of patient. She has progressive in hypoxia now requiring bipap/NIV from [facility]. ABG reviewed, alkalotic, hypoxic but decreasing some fio2 on NIV. I discussed patchy CXR, unclear etiology of pneumonia but likely viral. Already on broad abx coverage to cover for superinfections/bacterial. The finally would like to continue respiratory management. She would remain DNR incase of arrythmia or cardiac arrest. If hypoxia worsens, resp distress worsens, mental status worsens or hypercapnea ensues they are okay with endotracheal intubation. We discussed that intubation would support her for as long as she has resp distress and that she can still progress and worsen. They agree to trial intubation and if she gets worse then it would be okay. They also understand they have the option for compassionate weaning/extubation if they see no improvement in her medical condition if she were to be intubated. Nursing, RT, son, [id number] at bedside during discussion. All aware of current status/conditioni Patient is sleepy but arousable and follows commands, remains on bipap. Overall guarded state, critically ill state. 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
[2016-09-28] MEDS: Azithromycin IV(*) 500 MG in NS 0.9% 250 ML* 250 ML IVPB SCH (14:23)
[2016-09-28] MEDS: D5NS 0.9% 1000 ML BAG* 1,000 ML IV SCH (22:02)
[2016-09-29] MEDS: Piperac/Tazob 3.375 gm in NS* 3.375 GM/100 ML BAG IVPB SCH ×4 (00:02→23:18)
[2016-09-29] MEDS: Heparin VIAL(*) 5000 UNITS/ML VIAL (FIVE THOUSAND) SUBCUT SCH ×3 (05:57→21:41)
[2016-09-29 07:23] LABS: ALT 23 U/L (7-52); Albumin 2.3 g/dL (3.2-5.2); Alkaline Phosphatase 101 U/L (34-104); BUN/Creatinine Ratio 26.8 (8-20); Blood Urea Nitrogen 19 mg/dL (6-24); CO2 Carbon Dioxide 35 mmol/L (22-32); Calcium 8.1 mg/dL (8.6-10.3); Chloride 100 mmol/L (101-111); EGFR African American 102.1 (>60); EGFR Non-African American 79.4 (>60); Globulin 3.3 g/dL (2-4); Glucose 157 mg/dL (70-100); Magnesium 2.2 mg/dL (1.9-2.7); Sodium 141 mmol/L (133-145); Total Protein 5.6 g/dL (6.4-8.9)
--- NOTE | 2016-09-29 08:00 | PN ---
Progress Note - Progress Note Note: Progress Note - Critical Care 24 hour events/significant events: -was hypoxic yesterday morning, started on bipap 25/03; -abg done showing alkalosis, fio2 decreased -overnight was more hypoxic, fio2 increased to 100% -mental status is the same, opens eyes, alert, tracks, same baseline as yesterday -does not appear as tachypneic as yesterday -on IVF -family discussion yesterday, decision for trial of intubation if it comes to that point, still DNR Vitals: Vital Signs Temp 97.7 F 09/29/16 04:00 Pulse 76 09/29/16 06:00 Resp 23 09/29/16 06:41 BP 161/89 09/29/16 06:00 Pulse Ox 96 09/29/16 06:00 Intake & Output 09/28/16 09/29/16 09/29/16 18:59 06:59 18:59 Intake Total 606 1347 Balance 606 1347 Weight 143 lb 4.807 oz Intake: IV Fluids 206 1127 D5W NS (0.9%) 1047 NS (0.9%) 206 80 Medicated IV 200 potassium chloride 200 Oral 200 220 Other: Estimated Void Large Large # Bowel Movements 1 Estimated Stool Amount Small # Voids 2 1 O2/Vent: bipap 07/19, 100%, rr 22, sat 94-96%, TV 400-700 Medications: Acetaminophen (Tylenol Tab*) 650 mg PO Q4H PRN PRN Reason: FEVER/PAIN Albuterol/Ipratropium (Duoneb Neb.Sophia*) 1 neb INH Q4H PRN PRN Reason: SOB/WHEEZING Albuterol/Ipratropium (Duoneb Neb.Sophia*) 1 neb INH RT.TID [facility] Last Admin: 09/28/16 19:37 Dose: 1 neb Citalopram Hydrobromide (Celexa Tab*) 10 mg PO DAILY [facility] Last Admin: 09/28/16 09:33 Dose: 10 mg Donepezil HCl (Aricept Tab*) 10 mg PO DAILY [facility] Last Admin: 09/28/16 09:32 Dose: 10 mg Heparin Sodium (Porcine) (Heparin Vial(*)) 5,000 units SUBCUT Q8HR [facility] Last Admin: 09/29/16 05:57 Dose: 5,000 units Heparin Sodium (Porcine) (Heparin Flush Picc/Ml/Cvc(*)) 1 - 3 ml FLUSH 0600, 1800 [facility] PRN Reason: Protocol Last Admin: 09/29/16 06:37 Dose: Not Given Azithromycin 500 mg/ Sodium (Chloride) 250 mls @ 250 mls/hr IVPB Q24H [facility] Last Admin: 09/28/16 14:23 Dose: 250 mls/hr Piperacillin Sod/Tazobactam Sod (Zosyn 3.375 Gm In Ns Premix*) 3.375 gm in 100 mls @ 25 mls/hr IVPB Q8H [facility] Last Admin: 09/29/16 00:02 Dose: 25 mls/hr Famotidine 20 mg/ Sodium (Chloride) 102 mls @ 408 mls/hr IVPB DAILY [facility] Last Admin: 09/28/16 09:32 Dose: 408 mls/hr Dextrose/Sodium Chloride (D5ns 0.9% 1000 Ml Bag*) 1,000 mls @ 50 mls/hr IV .PER RATE [facility] Last Admin: 09/28/16 22:02 Dose: 50 mls/hr Methylprednisolone Sodium Succinate (Solu-Medrol*) 40 mg IV DAILY [facility] Last Admin: 09/28/16 09:32 Dose: 40 mg Morphine Sulfate (Morphine Inj (Syringe)*) 2 mg IV Q2H PRN PRN Reason: PAIN - MILD Last Admin: 09/28/16 15:34 Dose: 2 mg Ondansetron HCl (Zofran Inj*) 4 mg IV Q6H PRN PRN Reason: NAUSEA Physical Exam: General - awakens, less distress on bipap, not diaphoretic, nonverbal, moves spontaneously HEENT - no pallor, no icterus, moist mucous membranes Neck - no stridor, no jvd CVS - normal rate, normal rhythm, no murmur Resp - bilateral air entry, scattered mild rhales, no wheeze, no distress, no acc muscle use Abdomen - soft, nontender, nondistended, no rebound, bowel sounds present Ext - pulses+, warm, no edema Skin - intact, no breakdown, no dryness Neuro - awakens, moves all ext, easily arousable with verbal and tactile stimuli Labs: Laboratory Results - last 24 hr 09/28/16 09/29/16 12:45 07:00 Patient Temperature Not Reportable ABG pH 7.54 H ABG pCO2 38 ABG pO2 123 H ABG HCO3 32.2 H ABG O2 Saturation 99.3 H ABG Base Excess 9.3 H Respiration Rate Not Reportable Ventilator Type Not Reportable Vent Mode Not Reportable FiO2 100 Inspiratory Time Not Reportable PEEP Not Reportable Pressure Support Not Reportable Pressure Control Not Reportable EPAP 7 IPAP 14 BiPAP yes Sodium 141 Chloride 100 L Carbon Dioxide 35 H BUN 19 Creatinine 0.71 Est GFR ( Amer) 102.1 Est GFR (Non-Af Amer) 79.4 BUN/Creatinine Ratio 26.8 H Glucose 157 H Calcium 8.1 L Magnesium 2.2 Total Bilirubin 0.60 ALT 23 Alkaline Phosphatase 101 Total Protein 5.6 L Albumin 2.3 L Globulin 3.3 Albumin/Globulin Ratio 0.7 L Imaging: cxr 09/28 - bilateral multiple patchy infiltrates+, no effusion/ptx Assessment: 81y F admitted for hypoxia and cough. -Acute Hypoxic Respiratory Failure -ARDS -Pneumonia, suspected viral etiology -Severe Sepsis -Encephelopathy, metabolic/toxic/septic -EMILY, improved -NSTEMI, type 2? demand ischemia in setting of sepsis -Newly diagnosed mild-mod LV systolic dysfunction -CLL -Baseline Dementia Plan: Neuro - no change in mental status, easily awakens, tracks, less lethargic. overnight seems to have interacted with family. cont aricept. neuro checks q4h. fall prec CVS - hemodyn stable, no hypotension noted. appears euvolemic otherwise. started on d5ns infusion. Resp - progressive hypoxia requiring bipap, with increased fio2 req overnight. discussion for trial of intubation if any further progression. seems like she is likely to get intubated in next 24 hours, will increase epap in attempt to recruit. IV solumedrol, no sig benefit seen, will dec dose; cont nebulizers; cont azithro day 01/16 and zosyn day 01/16. culture neg, influenza neg. GI - npo, pepcid IV ID - zosyn 01/16, azithro 01/16; wbc elevated, likely from combination of CLL history and steroids and sepsis. afebrile. cont to monitor. influenza neg. Heme - leukocytosis, reactive? multifactorial from steroids/sepsis/cll; dvt prophylaxis. plt normal. no bleeding noted. Renal - d5ns infusion, incontinent otherwise. clinically appears euvolemic. Renal function normal now. K level pending, replete with PO/IV. Musculoskeletal - bedrest for now, pressure ulcer prophylaxis DVT prophylaxis - heparin sq GI prophylaxis - pepcid Central Line - none Arterial Line - none Wu Cathetor - none Code status: DNR, with trial of intubation if req Seems like this may poor prognosis, progressive hypoxia, no improvement noted. 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
[2016-09-29] MEDS: Albuterol/Ipratropium NEB.SOL* Albuterol 2.5 MG/Ipratropium 0.5 MG 3 ML INH SCH ×3 (08:12→20:15)
[2016-09-29] MEDS ORDERED: Famotidine IV* 10 MG/ML 2 ML (20 mg) ONE (09:27)
[2016-09-29] MEDS: methylPREDNISolone SOD 40 MG* 1 ML VIAL IV SCH (09:31)
[2016-09-29] MEDS: Famotidine IV * 20 MG in NS 0.9% 100 ML* 100 ML IVPB SCH (09:32)
[2016-09-29] MEDS: Morphine INJ* 2 MG/ML 1 ML CARPUJECT IV PRN (10:39)
[2016-09-29] MEDS: Nystatin TOP POWDER* 15 GM BTL TOPICAL SCH ×2 (10:56→16:29)
[2016-09-29] MEDS: Donepezil TAB* 5 MG PO SCH (12:03)
[2016-09-29] MEDS: Citalopram TAB* 10 MG PO SCH (12:03)
[2016-09-29] MEDS ORDERED: Potassium Chlor TAB* 20 MEQ TAB.ER PO PRN (12:52)
[2016-09-29 13:07] LABS: Urine Bacteria Absent (Absent); Urine Bilirubin Negative (Negative); Urine Glucose Negative (Negative); Urine Nitrite Negative (Negative)
[2016-09-29] MEDS: Azithromycin IV(*) 500 MG in NS 0.9% 250 ML* 250 ML IVPB SCH (13:49)
[2016-09-29] MEDS: KCL 20 MEQ/100 ML IVPREMIX* 20 MEQ/100 ML BAG IV SCH ×2 (15:09→16:31)
[2016-09-29] MEDS: D5NS 0.9% 1000 ML BAG* 1,000 ML IV SCH (15:22)
[2016-09-30] MEDS: Nystatin TOP POWDER* 15 GM BTL TOPICAL SCH ×3 (01:39→16:48)
[2016-09-30] MEDS: Heparin VIAL(*) 5000 UNITS/ML VIAL (FIVE THOUSAND) SUBCUT SCH ×3 (06:00→21:55)
[2016-09-30] MEDS: Piperac/Tazob 3.375 gm in NS* 3.375 GM/100 ML BAG IVPB SCH ×2 (07:35→16:48)
--- NOTE | 2016-09-30 07:49 | RAD ---
Indication: Follow-up pneumonia. Acute hypoxic respiratory failure. Tobacco use. Dementia. Comparison: O 0557 hours September 28, 2016 and September 25, 2016 Technique: Upright AP 0507 hours Report: Mild worsening of bilateral inflammatory infiltrates with relative sparing of the peripheral RIGHT mid to lower lung zone and LEFT upper lung zone. Grossly clear pleural spaces. Negative for cardiomegaly. Unremarkable central pulmonary vasculature and mediastinal contours. IMPRESSION: Worsening of bilateral inflammatory infiltrates.
[2016-09-30] MEDS: Albuterol/Ipratropium NEB.SOL* Albuterol 2.5 MG/Ipratropium 0.5 MG 3 ML INH SCH ×3 (08:02→19:37)
--- NOTE | 2016-09-30 08:28 | PN ---
Progress Note - Progress Note Note: Progress Note - Critical Care 24 hour events/significant events: -overnight stable -was weaned off of bipap yesterday and tolerated vapotherm HF NC; currently on 100% 30lpm -in bed, sleeping but awakens, no distress, alert. -family at bedside yesterday and discussed management. Vitals: Vital Signs Temp 99.8 F 09/30/16 08:00 Pulse 88 09/30/16 08:03 Resp 19 09/30/16 08:03 BP 155/60 09/30/16 08:00 Pulse Ox 98 09/30/16 08:03 Intake & Output 09/29/16 09/30/16 09/30/16 18:59 06:59 18:59 Intake Total 1157 1383.2 Output Total 300 1150 Balance 857 233.2 Weight 147 lb 7.828 oz Intake: IV Fluids 412 1383.2 D5W NS (0.9%) 399 1193 NS (0.9%) 13 190.2 IVPB 145 NS (0.9%) 145 Oral 600 Output: Jones 300 1150 Other: # Bowel Movements 2 Estimated Stool Amount Small O2/Vent: HF NC 100%, 30lpm; rr 20-25, sat 100%. Medications: Acetaminophen (Tylenol Tab*) 650 mg PO Q4H PRN PRN Reason: FEVER/PAIN Albuterol/Ipratropium (Duoneb Neb.Sophia*) 1 neb INH Q4H PRN PRN Reason: SOB/WHEEZING Albuterol/Ipratropium (Duoneb Neb.Sophia*) 1 neb INH RT.TID [facility] Last Admin: 09/30/16 08:02 Dose: 1 neb Citalopram Hydrobromide (Celexa Tab*) 10 mg PO DAILY [facility] Last Admin: 09/29/16 12:03 Dose: 10 mg Donepezil HCl (Aricept Tab*) 10 mg PO DAILY [facility] Last Admin: 09/29/16 12:03 Dose: 10 mg Heparin Sodium (Porcine) (Heparin Vial(*)) 5,000 units SUBCUT Q8HR [facility] Last Admin: 09/30/16 06:00 Dose: 5,000 units Heparin Sodium (Porcine) (Heparin Flush Picc/Ml/Cvc(*)) 1 - 3 ml FLUSH 0600, 1800 [facility] PRN Reason: Protocol Last Admin: 09/30/16 06:00 Dose: Not Given Azithromycin 500 mg/ Sodium (Chloride) 250 mls @ 250 mls/hr IVPB Q24H [facility] Last Admin: 09/29/16 13:49 Dose: 250 mls/hr Piperacillin Sod/Tazobactam Sod (Zosyn 3.375 Gm In Ns Premix*) 3.375 gm in 100 mls @ 25 mls/hr IVPB Q8H [facility] Last Admin: 09/30/16 07:35 Dose: 25 mls/hr Famotidine 20 mg/ Sodium (Chloride) 102 mls @ 408 mls/hr IVPB DAILY [facility] Last Admin: 09/29/16 09:32 Dose: 408 mls/hr Dextrose/Sodium Chloride (D5ns 0.9% 1000 Ml Bag*) 1,000 mls @ 50 mls/hr IV .PER RATE [facility] Last Admin: 09/29/16 15:22 Dose: 50 mls/hr Methylprednisolone Sodium Succinate (Solu-Medrol*) 20 mg IV DAILY [facility] Last Admin: 09/29/16 09:31 Dose: 20 mg Morphine Sulfate (Morphine Inj (Syringe)*) 2 mg IV Q2H PRN PRN Reason: PAIN - MILD Last Admin: 09/29/16 10:39 Dose: 2 mg Nystatin (Nystatin Top Powder*) 1 applic TOPICAL Q8H [facility] Last Admin: 09/30/16 01:39 Dose: 1 apply Ondansetron HCl (Zofran Inj*) 4 mg IV Q6H PRN PRN Reason: NAUSEA Potassium Chloride (Klor Con Er Tab*) 40 meq PO ONCE PRN PRN Reason: hypokalemia Last Admin: 09/29/16 13:56 Dose: 40 meq Physical Exam: General - awakens, no distress on HF, not diaphoretic, verbal with family, hard of hearing, moves spontaneously HEENT - no pallor, no icterus, moist mucous membranes Neck - no stridor, no jvd CVS - normal rate, normal rhythm, no murmur Resp - bilateral air entry, scattered mild rhales, no wheeze, no distress, no acc muscle use Abdomen - soft, nontender, nondistended, no rebound, bowel sounds present Ext - pulses+, warm, no edema Skin - intact, no breakdown, no dryness Neuro - awakens, moves all ext, easily arousable with verbal and tactile stimuli Labs: Laboratory Results - last 24 hr 09/29/16 09/29/16 09/29/16 08:45 11:00 12:00 Potassium TNP 2.6 L* AST TNP 62 H Urine Color Yellow Urine Appearance Clear Urine pH 5.0 Ur Specific [place] 1.018 Urine Protein Negative Urine Ketones Negative Urine Blood 2+ H Urine Nitrate Negative Urine Bilirubin Negative Urine Urobilinogen Negative Ur Leukocyte Esterase Negative Urine WBC (Auto) Absent Urine RBC (Auto) Trace(0-2/hpf) Urine Bacteria Absent Hyaline Casts Present H Granular Casts Present H Urine Glucose Negative Imaging: cxr 09/28 - bilateral multiple patchy infiltrates+, no effusion/ptx cxr 09/30 - slightly worse bilateral infiltrates, RLL and Left lower lobe; official report reviewed. Assessment: 81y F admitted for hypoxia and cough. -Acute Hypoxic Respiratory Failure -ARDS -Pneumonia, suspected viral etiology -Severe Sepsis -Encephelopathy, metabolic/toxic/septic -EMILY, improved -NSTEMI, type 2? demand ischemia in setting of sepsis -Newly diagnosed mild-mod LV systolic dysfunction -CLL -Baseline Dementia Plan: Neuro - no change in mental status, easily awakens, tracks. cont aricept. neuro checks q4h. fall prec CVS - hemodyn stable, no hypotension. appears euvolemic. d5ns infusion. Resp - hypoxia still present but does not require bipap support, tolerating HF well. Some clinical improvement in past 24 hours. will try to wean down fio2, keep 30lpm for peep. trial of intubation if needed. IV solumedrol decreased to 20mg yesterday. cont nebulizers; cont azithro day 02/16 and zosyn day 02/16. culture neg, influenza neg. GI - cont oral diet, asp prec, pepcid IV GI prophylaxis. flex seal for loose stool present. c.diff negative 09/29 ID - zosyn 02/16, azithro 02/16; wbc elevated, likely from combination of CLL history and steroids and sepsis. afebrile. cont to monitor. influenza neg. Heme - leukocytosis, reactive? multifactorial from steroids/sepsis/cll; dvt prophylaxis. plt normal. no bleeding noted. Renal - d5ns infusion, jones placed for incontinence. clinically appears euvolemic. Renal function normal now. Replete K and Mg as needed. Musculoskeletal - bedrest for now, pressure ulcer prophylaxis. can attempt OOB to chair. DVT prophylaxis - heparin sq GI prophylaxis - pepcid Central Line - none Arterial Line - none Jones Cathetor - yes Code status: DNR, with trial of intubation if req Disposition: ICU status for hypoxic respiratory failure Total Critical Care time is 30 minutes, excluding procedures/teaching Chilo River MD Vp Of [employer]
[2016-09-30] MEDS: Famotidine IV * 20 MG in NS 0.9% 100 ML* 100 ML IVPB SCH (08:41)
[2016-09-30] MEDS: methylPREDNISolone SOD 40 MG* 1 ML VIAL IV SCH (08:41)
[2016-09-30 08:43] LABS: Hematocrit 35 % (35-47); Hemoglobin 11.6 g/dl (12.0-16.0); Mean Corpuscular HGB Conc 33 g/dl (31-36); Mean Corpuscular Hemoglobin 28 pg (27-31); Mean Corpuscular Volume 85 fL (80-97); Mean Platelet Volume 10 um3 (7.4-10.4); Red Blood Count 4.14 10^6/ul (4.0-5.4); Red Cell Distribution Width 15 % (10.5-15); White Blood Count 34.9 10^3/ul (3.5-10.8)
[2016-09-30] MEDS: Donepezil TAB* 5 MG PO SCH (08:49)
[2016-09-30] MEDS: Citalopram TAB* 10 MG PO SCH (08:49)
[2016-09-30] MEDS: Acetaminophen TAB* 325 MG PO PRN (08:49)
[2016-09-30 08:55] LABS: Add Diff/Slide Review? Slide Review Added; Comments Flag Yes
[2016-09-30 08:57] LABS: BUN/Creatinine Ratio 20.7 (8-20); Calcium 7.8 mg/dL (8.6-10.3); EGFR Non-African American 100.3 (>60)
[2016-09-30 09:20] LABS: Immature Granulocytes 2 % (0-9); Myelocytes % 1 % (0-1); Neutrophil % 41 % (38-83)
[2016-09-30 09:21] LABS: RBC Morphology Normal (Normal)
[2016-09-30 09:22] LABS: Add Path Review? YES
[2016-09-30] MEDS: D5NS 0.9% 1000 ML BAG* 1,000 ML IV SCH ×2 (09:33→23:09)
[2016-09-30] MEDS ORDERED: Loperamide CAP* 2 MG PO ONE (09:35)
[2016-09-30 10:42] LABS: Potassium 3.7 mmol/L (3.5-5.0)
[2016-09-30 10:43] LABS: Magnesium 1.9 mg/dL (1.9-2.7)
[2016-09-30] MEDS: Azithromycin IV(*) 500 MG in NS 0.9% 250 ML* 250 ML IVPB SCH (13:15)
[2016-10-01] MEDS: Piperac/Tazob 3.375 gm in NS* 3.375 GM/100 ML BAG IVPB SCH ×3 (01:45→15:52)
[2016-10-01] MEDS: Nystatin TOP POWDER* 15 GM BTL TOPICAL SCH ×3 (01:45→16:52)
[2016-10-01] MEDS: Heparin VIAL(*) 5000 UNITS/ML VIAL (FIVE THOUSAND) SUBCUT SCH ×3 (06:45→22:15)
[2016-10-01] MEDS: Famotidine IV * 20 MG in NS 0.9% 100 ML* 100 ML IVPB SCH (07:37)
[2016-10-01] MEDS: methylPREDNISolone SOD 40 MG* 1 ML VIAL IV SCH (08:26)
[2016-10-01] MEDS: Donepezil TAB* 5 MG PO SCH (09:00)
[2016-10-01] MEDS: Citalopram TAB* 10 MG PO SCH (09:00)
[2016-10-01] MEDS: Acetaminophen TAB* 325 MG PO PRN (09:00)
--- NOTE | 2016-10-01 10:02 | PN ---
Progress Note - Progress Note Note: Progress Note - Critical Care 24 hour events/significant events: -overnight stable -on HF NC still, on 80% HF 30lpm this morning -no distress, sleepy but awakens. -overnight still has diarrhea but slowed after some immodium yesterday -temps 99.4 only Vitals: Vital Signs Temp 99.2 F 10/01/16 08:00 Pulse 72 10/01/16 08:00 Resp 17 10/01/16 08:00 BP 136/66 10/01/16 08:00 Pulse Ox 95 10/01/16 08:00 Intake & Output 09/30/16 10/01/16 10/01/16 18:59 06:59 18:59 Intake Total 1984 2453 Output Total 600 1775 Balance 1384 678 Weight 149 lb 7.574 oz Intake: IV Fluids 481 1553 D5W NS (0.9%) 449 1410 NS (0.9%) 32 143 IVPB 183 900 D5W NS (0.9%) 50 520 NS (0.9%) 133 380 Oral 120 Jones Irrigate Amount 1200 Output: Jones 1225 Liquid Stool 600 550 O2/Vent: HF NC 100%, 30lpm; rr 20-25, sat 100%. Medications: Acetaminophen (Tylenol Tab*) 650 mg PO Q4H PRN PRN Reason: FEVER/PAIN Last Admin: 10/01/16 09:00 Dose: 650 mg Albuterol/Ipratropium (Duoneb Neb.Sophia*) 1 neb INH Q4H PRN PRN Reason: SOB/WHEEZING Albuterol/Ipratropium (Duoneb Neb.Sophia*) 1 neb INH RT.TID [facility] Last Admin: 09/30/16 19:37 Dose: 1 neb Citalopram Hydrobromide (Celexa Tab*) 10 mg PO DAILY [facility] Last Admin: 10/01/16 09:00 Dose: 10 mg Donepezil HCl (Aricept Tab*) 10 mg PO DAILY [facility] Last Admin: 10/01/16 09:00 Dose: 10 mg Famotidine (Pepcid Tab*) 20 mg PO BID [facility] Heparin Sodium (Porcine) (Heparin Vial(*)) 5,000 units SUBCUT Q8HR [facility] Last Admin: 10/01/16 06:45 Dose: 5,000 units Heparin Sodium (Porcine) (Heparin Flush Picc/Ml/Cvc(*)) 1 - 3 ml FLUSH 0600, 1800 [facility] PRN Reason: Protocol Last Admin: 10/01/16 06:44 Dose: Not Given Azithromycin 500 mg/ Sodium (Chloride) 250 mls @ 250 mls/hr IVPB Q24H [facility] Last Admin: 09/30/16 13:15 Dose: 250 mls/hr Piperacillin Sod/Tazobactam Sod (Zosyn 3.375 Gm In Ns Premix*) 3.375 gm in 100 mls @ 25 mls/hr IVPB Q8H [facility] Last Admin: 10/01/16 08:55 Dose: 25 mls/hr Dextrose/Sodium Chloride (D5ns 0.9% 1000 Ml Bag*) 1,000 mls @ 75 mls/hr IV .PER RATE [facility] Last Admin: 09/30/16 23:09 Dose: 75 mls/hr Methylprednisolone Sodium Succinate (Solu-Medrol*) 20 mg IV DAILY [facility] Last Admin: 10/01/16 08:26 Dose: 20 mg Morphine Sulfate (Morphine Inj (Syringe)*) 2 mg IV Q2H PRN PRN Reason: PAIN - MILD Last Admin: 09/29/16 10:39 Dose: 2 mg Nystatin (Nystatin Top Powder*) 1 applic TOPICAL Q8H [facility] Last Admin: 10/01/16 09:01 Dose: 1 apply Ondansetron HCl (Zofran Inj*) 4 mg IV Q6H PRN PRN Reason: NAUSEA Last Admin: 10/01/16 08:25 Dose: 4 mg Potassium Chloride (Klor Con Er Tab*) 40 meq PO ONCE PRN PRN Reason: hypokalemia Last Admin: 09/29/16 13:56 Dose: 40 meq Physical Exam: General - awakens, no distress on HF, not diaphoretic, verbal with family, hard of hearing, moves spontaneously HEENT - no pallor, no icterus, moist mucous membranes Neck - no stridor, no jvd CVS - normal rate, normal rhythm, no murmur Resp - bilateral air entry, scattered mild rhales, no wheeze, no distress, no acc muscle use Abdomen - soft, nontender, nondistended, no rebound, bowel sounds present Ext - pulses+, warm, no edema Skin - intact, no breakdown, no dryness Neuro - awakens, moves all ext, easily arousable with verbal and tactile stimuli Labs: Laboratory Results - last 24 hr 09/30/16 09/30/16 09/30/16 08:37 08:37 10:07 Hem Pathologist Commnt Potassium 3.7 Anion Gap 6 POC Glucose (mg/dL) 174 H Magnesium 1.9 Imaging: cxr 09/28 - bilateral multiple patchy infiltrates+, no effusion/ptx cxr 09/30 - slightly worse bilateral infiltrates, RLL and Left lower lobe; official report reviewed. Assessment: 81y F admitted for hypoxia and cough. -Acute Hypoxic Respiratory Failure -ARDS -Pneumonia, suspected viral etiology -Severe Sepsis -Encephelopathy, metabolic/toxic/septic -EMILY, improved -NSTEMI, type 2? demand ischemia in setting of sepsis -Newly diagnosed mild-mod LV systolic dysfunction -CLL -Baseline Dementia Plan: Neuro - no change in mental status, easily awakens, tracks. cont aricept. neuro checks q4h. fall prec CVS - hemodyn stable, no hypotension. appears euvolemic. d5ns infusion. Resp - hypoxia still present but does not require bipap support, tolerating HF well, continue to weak support, may be able to switch to NC today. on nebulizers q4h. on solumedrol, cont to decrease. Some clinical improvement in past 24 hours. trial of intubation if needed. azithro day 03/18 and zosyn day 03/18 , discontinue after today. culture neg, influenza neg. GI - cont oral diet, asp prec, pepcid IV GI prophylaxis. flex seal for loose stool present. c.diff negative 09/29. likely antibiotic assoc diarrhea. imodium prn. ID - zosyn 03/18, azithro 03/18; wbc elevated, likely from combination of CLL history and steroids and sepsis. afebrile. cont to monitor. influenza neg. Heme - leukocytosis, reactive? multifactorial from steroids/sepsis/cll; dvt prophylaxis. plt normal. no bleeding noted. Renal - d5ns infusion, check Na today and adjust d5. jones placed for incontinence. clinically appears euvolemic. Renal function normal now. Replete K and Mg as needed. Musculoskeletal - bedrest for now, pressure ulcer prophylaxis. can attempt OOB to chair. DVT prophylaxis - heparin sq GI prophylaxis - pepcid Central Line - none Arterial Line - none Jones Cathetor - yes Code status: DNR, with trial of intubation if req Disposition: ICU status for hypoxic respiratory failure; slow improvement. may be able to be transferred out of ICU in next few days if continued weaning of O2. Total Critical Care time is 30 minutes, excluding procedures/teaching Chilo River MD Apartment Coordinator
[2016-10-01 11:11] LABS: BUN/Creatinine Ratio 21.4 (8-20); Calcium 7.6 mg/dL (8.6-10.3); EGFR African American 134.3 (>60); EGFR Non-African American 104.4 (>60)
[2016-10-01 11:26] LABS: Potassium 2.7 mmol/L (3.5-5.0)
[2016-10-01] MEDS ORDERED: Potassium Chlor TAB* 20 MEQ TAB.ER PO ONE ×2 (11:30→17:00)
[2016-10-01] MEDS ORDERED: Loperamide CAP* 2 MG PO ONE (11:31)
[2016-10-01] MEDS: Albuterol/Ipratropium NEB.SOL* Albuterol 2.5 MG/Ipratropium 0.5 MG 3 ML INH SCH (14:24)
[2016-10-01] MEDS: Azithromycin IV(*) 500 MG in NS 0.9% 250 ML* 250 ML IVPB SCH (14:33)
[2016-10-01] MEDS: D5NS 0.9% 1000 ML BAG* 1,000 ML IV SCH (15:52)
[2016-10-01] MEDS: Morphine INJ* 2 MG/ML 1 ML CARPUJECT IV PRN (20:12)
[2016-10-01] MEDS: Famotidine TAB* 20 MG PO SCH (20:12)
[2016-10-01] MEDS: hydrALAZINE IV* 20 MG/ML VIAL IV PRN (22:11)
[2016-10-02] MEDS ORDERED: Furosemide IV* 10 MG/ML 2 ML VIAL (20 MG) ONE (02:09)
[2016-10-02] MEDS: Nystatin TOP POWDER* 15 GM BTL TOPICAL SCH ×2 (02:10→08:13)
[2016-10-02] MEDS ORDERED: Furosemide IV* 10 MG/ML 2 ML VIAL (20 MG) IV ONE (03:00)
[2016-10-02 04:53] LABS: Hematocrit 37 % (35-47); Hemoglobin 12.1 g/dl (12.0-16.0); Mean Corpuscular HGB Conc 33 g/dl (31-36); Mean Corpuscular Hemoglobin 28 pg (27-31); Mean Corpuscular Volume 86 fL (80-97); Mean Platelet Volume 9 um3 (7.4-10.4); Red Blood Count 4.32 10^6/ul (4.0-5.4); Red Cell Distribution Width 15 % (10.5-15); White Blood Count 39.2 10^3/ul (3.5-10.8)
[2016-10-02 05:05] LABS: Calcium 7.9 mg/dL (8.6-10.3); EGFR African American 121.7 (>60); EGFR Non-African American 94.6 (>60); Potassium 3.5 mmol/L (3.5-5.0)
[2016-10-02 05:10] LABS: Comments Flag Yes
[2016-10-02] MEDS: Heparin VIAL(*) 5000 UNITS/ML VIAL (FIVE THOUSAND) SUBCUT SCH ×3 (05:19→20:34)
[2016-10-02] MEDS: methylPREDNISolone SOD 40 MG* 1 ML VIAL IV SCH (08:09)
[2016-10-02] MEDS: Citalopram TAB* 10 MG PO SCH (08:13)
[2016-10-02] MEDS: Donepezil TAB* 5 MG PO SCH (08:13)
[2016-10-02] MEDS: Famotidine TAB* 20 MG PO SCH ×2 (08:13→20:32)
--- NOTE | 2016-10-02 08:27 | RAD ---
INDICATION: Bilateral infiltrates. COMPARISON: Comparison is made with a prior chest x-ray study from September 30, 2016. TECHNIQUE: A portable view of the chest was obtained. FINDINGS: Cardiac and mediastinal contours appear to be within normal limits. There is a faint patchy infiltrate which projects over the right upper lobe and at the right lung base and a more consolidative infiltrate present at the left lung base. These appear improved from the prior exam. No pleural effusion is seen. IMPRESSION: BILATERAL INFILTRATES IMPROVED.
[2016-10-02] MEDS: D5NS 0.9% 1000 ML BAG* 1,000 ML IV SCH (10:37)
--- NOTE | 2016-10-02 10:50 | PN ---
Critical Care Services: Now on high-flow nasal O2 (40 L/mon at FIO2 of 100%) with SpO2 in mid 90s. Is somnolent but arousable. Continues with watery diarrhea (C diff negative) Vital Signs: Temp Pulse Resp BP SpO2 FiO2 99.1 F 81 28 132/55 97 100 Physical Exam: Gen:As stated Lungs:No adventitious sounds Abdomen: Not distended Extremities:No cyanosis or edema Fluid Balance (Past 24 Hours): 10/02/16 06:59 Intake Total 2616 Output Total 3625 Balance -1009 Weight 159 lb Intake: IV Fluids 1676 D5W NS (0.9%) 1567 NS (0.9%) 109 IVPB 300 ABX - ZOSYN 100 D5W NS (0.9%) 100 NS (0.9%) 100 Oral 640 Wu Irrigate Amount Output: Wu 2925 Liquid Stool 700 Labs: 10/02/16 10/02/16 04:42 04:42 WBC 39.2 RBC 4.32 Hgb 12.1 Hct 37 MCV 86 MCH 28 MCHC 33 RDW 15 Plt Count 165 Sodium 142 Potassium 3.5 Chloride 102 Carbon Dioxide 33 H BUN 14 Creatinine 0.61 Glucose 161 H Calcium 7.9 L Studies: CXR: Bibasilar infiltrates (L>R), improving. Nutrition: Oral diet. Impression: Respiratory status is slowly improving. There are no signs of active infection at the present time, and the pulmonary infiltrates are likely due to CHF/excess fluids. Plan: Attempt further diuresis today, and wean off high-flow nasal O2 as tolerated. Critical Care Time: 40 minutes
[2016-10-02] MEDS ORDERED: Furosemide IV* 10 MG/ML VIAL (40 MG) IV ONE (11:30)
[2016-10-02] MEDS: hydrALAZINE IV* 20 MG/ML VIAL IV PRN (22:19)
[2016-10-03] MEDS: Heparin VIAL(*) 5000 UNITS/ML VIAL (FIVE THOUSAND) SUBCUT SCH ×3 (05:30→20:56)
[2016-10-03 05:51] LABS: Hematocrit 34 % (35-47); Hemoglobin 11.1 g/dl (12.0-16.0); Mean Corpuscular HGB Conc 33 g/dl (31-36); Mean Corpuscular Hemoglobin 28 pg (27-31); Mean Corpuscular Volume 86 fL (80-97); Mean Platelet Volume 10 um3 (7.4-10.4); Red Blood Count 3.97 10^6/ul (4.0-5.4); Red Cell Distribution Width 15 % (10.5-15)
[2016-10-03] MEDS: D5NS 0.9% 1000 ML BAG* 1,000 ML IV SCH ×2 (05:52→21:41)
[2016-10-03 05:57] LABS: Comments Flag Yes
[2016-10-03 06:11] LABS: BUN/Creatinine Ratio 31.4 (8-20); Calcium 8.1 mg/dL (8.6-10.3); EGFR African American 149.6 (>60); EGFR Non-African American 116.3 (>60); Magnesium 1.7 mg/dL (1.9-2.7)
--- NOTE | 2016-10-03 08:40 | RAD ---
INDICATION: Congestive heart failure. COMPARISON: Comparison is made with a prior chest x-ray study from October 02, 2016. TECHNIQUE: A portable view of the chest was obtained. FINDINGS: Cardiac and mediastinal contours appear to be within normal limits. There are patchy infiltrates present in the right upper lobe, left midlung and at both lung bases which are unchanged. No pleural effusion is seen. IMPRESSION: BILATERAL INFILTRATES, UNCHANGED.
[2016-10-03] MEDS: Famotidine TAB* 20 MG PO SCH ×2 (12:20→20:56)
--- NOTE | 2016-10-03 15:07 | PN ---
Critical Care Services: Resting comfortbly in the chair. No specific complaints, but does have continuing diarrhea. Vital Signs: Temp Pulse Resp BP SpO2 FiO2 98.2 F 91 27 113/48 95 100 Physical Exam: Gen: somnolent but easily arousable Lungs:Clear Abdomen: Not distended. Nontender Extremities:No cyanosis or edema Fluid Balance (Past 24 Hours): 10/03/16 06:59 Intake Total 2037 Output Total 3600 Balance -1562 Weight 158 lb 4.67 oz Intake: IV Fluids 1197.7 D5W NS (0.9%) 1176 NS (0.9%) 21.7 IVPB ABX - ZOSYN D5W NS (0.9%) NS (0.9%) Oral 840 Wu Irrigate Amount Output: Wu 2600 Liquid Stool 1000 NOTE: One liter of liquid stool. Labs: 10/03/16 10/03/16 05:41 05:41 WBC 37.0 Hgb 11.1 Hct 34 Plt Count 179 Sodium 138 Potassium 4.0 Chloride 102 Carbon Dioxide 33 BUN 16 Creatinine 0.51 Glucose 147 Calcium 8.1 Magnesium 1.7 Studies: CXR: Further clearing of pulmonary infiltrates. Nutrition: Oral diet Impression: 1. No evidence of pneumonia. 2. Evidence of CHF is resolving. 3. major problem is watery diarrhea, presumably from antibiotics. Plan: General supportive care, and monitor daily stool volume. Will discuss transfer out of ICU with Dr Rodriguez in AM tomorrow.
[2016-10-04] MEDS: Heparin VIAL(*) 5000 UNITS/ML VIAL (FIVE THOUSAND) SUBCUT SCH ×3 (05:14→21:06)
[2016-10-04] MEDS: Famotidine TAB* 20 MG PO SCH ×2 (08:42→20:06)
[2016-10-04] MEDS ORDERED: Furosemide IV* 10 MG/ML VIAL (40 MG) IV ONE (10:52)
--- NOTE | 2016-10-04 11:24 | PN ---
Subjective Date of Service: 10/04/16 Interval History: Seen and examined with son at bedside She remains lethargic this AM and is unable to participate meaningfully with the interview Son thinks she is no better than yesterday. He tried to feed her some food with minimal success Found to be 82% although facemask had fallen off. Increased to 93% on 10L facemask Objective Active Medications: Albuterol/Ipratropium (Duoneb Neb.Sophia*) 1 neb INH Q4H PRN PRN Reason: SOB/WHEEZING Last Admin: 10/02/16 00:43 Dose: 1 neb Famotidine (Pepcid Tab*) 20 mg PO BID [facility] Last Admin: 10/04/16 08:42 Dose: 20 mg Heparin Sodium (Porcine) (Heparin Vial(*)) 5,000 units SUBCUT Q8HR [facility] Last Admin: 10/04/16 05:14 Dose: 5,000 units Heparin Sodium (Porcine) (Heparin Flush Picc/Ml/Cvc(*)) 1 - 3 ml FLUSH 0600, 1800 [facility] PRN Reason: Protocol Last Admin: 10/04/16 05:15 Dose: Not Given Hydralazine HCl (Apresoline Iv*) 10 mg IV Q4H PRN PRN Reason: Systolic >175 Last Admin: 10/02/16 22:19 Dose: 10 mg Dextrose/Sodium Chloride (D5ns 0.9% 1000 Ml Bag*) 1,000 mls @ 10 mls/hr IV PER RATE [facility] Last Admin: 10/03/16 21:41 Dose: 10 mls/hr Ondansetron HCl (Zofran Inj*) 4 mg IV Q6H PRN PRN Reason: NAUSEA Last Admin: 10/01/16 08:25 Dose: 4 mg Vital Signs 10/03/16 10/03/16 10/03/16 11:53 12:00 12:07 Temperature 99.4 F 99.4 F Pulse Rate 98 Respiratory 19 19 19 Rate Blood Pressure (mmHg) O2 Sat by Pulse 93 Oximetry 10/03/16 10/03/16 10/03/16 12:12 13:00 14:00 Temperature 99.1 F 98.2 F Pulse Rate 91 Respiratory 29 27 Rate Blood Pressure 135/49 108/39 113/48 (mmHg) O2 Sat by Pulse 95 Oximetry 10/03/16 10/03/16 10/03/16 15:00 16:00 17:00 Temperature 97.6 F 100.0 F 100.1 F Pulse Rate 107 93 102 Respiratory 22 20 25 Rate Blood Pressure 115/49 147/61 162/71 (mmHg) O2 Sat by Pulse 95 99 91 Oximetry 10/03/16 10/03/16 10/03/16 17:11 18:00 18:03 Temperature 100.2 F 100.3 F Pulse Rate 98 105 Respiratory 22 20 Rate Blood Pressure 132/48 (mmHg) O2 Sat by Pulse 97 97 97 Oximetry 10/03/16 10/03/16 10/03/16 18:59 19:00 20:00 Temperature 100.4 F 100.7 F Pulse Rate 102 99 Respiratory 13 25 23 Rate Blood Pressure 126/77 131/41 (mmHg) O2 Sat by Pulse 93 98 Oximetry 10/03/16 10/03/16 10/03/16 22:12 22:14 23:33 Temperature 99.3 F 99.3 F Pulse Rate 100 99 Respiratory 18 18 16 Rate Blood Pressure 140/68 145/70 (mmHg) O2 Sat by Pulse 99 92 Oximetry 10/04/16 10/04/16 03:14 06:22 Temperature 97.9 F Pulse Rate 88 80 Respiratory 24 20 Rate Blood Pressure 131/64 (mmHg) O2 Sat by Pulse 91 94 Oximetry Oxygen Devices in Use Now: Simple Face Mask - 10L 93% Appearance: lying 45 deg, eyes closed, opens briefly to touch and name but quickly back to sleep, no respiratory distress Eyes: No Scleral Icterus, PERRLA Ears/Nose/Mouth/Throat: Clear Oropharnyx, Mucous Membranes Moist Neck: NL Appearance and Movements; NL JVP Respiratory: Symmetrical Chest Expansion and Respiratory Effort, Clear to Auscultation Cardiovascular: NL Sounds; No Murmurs; No JVD, RRR Abdominal: No Hepatosplenomegaly, - - TTP largely in right and lower quadrants Lymphatic: No Cervical Adenopathy Extremities: No Edema, No Clubbing, Cyanosis Skin: No Rash or Ulcers Neurological: - - AOx0, opens eyes briefly, eyes pinpoint Result Diagrams: 10/03/16 05:41 10/03/16 05:41 Additional Lab and Data: Lab Results 09/25/16 09/25/16 09/25/16 Range/Units 11:51 11:51 11:51 WBC 43.4 H (3.5-10.8) 10^3/ul RBC 5.29 (4.0-5.4) 10^6/ul Hgb 14.7 (12.0-16.0) g/dl Hct 47 (35-47) % MCV 89 (80-97) fL MCH 28 (27-31) pg MCHC 32 (31-36) g/dl RDW 15 (10.5-15) % Plt Count 286 (150-450) 10^3/ul MPV 10 (7.4-10.4) um3 Neut % (Auto) 25.7 L (38-83) % Lymph % (Auto) 72.1 H (25-47) % [place] % (Auto) 2.2 (1-9) % Eos % (Auto) 0 (0-6) % Baso % (Auto) 0 (0-2) % Absolute Neuts (auto) 11.1 H (1.5-7.7) 10^3/ul Absolute Lymphs (auto) 31.3 H (1.0-4.8) 10^3/ul Absolute Monos (auto) 1.0 H (0-0.8) 10^3/ul Absolute Eos (auto) 0 (0-0.6) 10^3/ul Absolute Basos (auto) 0 (0-0.2) 10^3/ul Absolute Nucleated RBC 0.05 10^3/ul Nucleated RBC % 0.1 INR (Anticoag Therapy) 1.29 H (0.89-1.11) APTT 26.8 (26.0-36.3) seconds VBG pH (7.33-7.43) VBG pCO2 (41-51) mmHg VBG pO2 (35-45) mmHg VBG HCO3 (24-28) mmol/L VBG O2 Saturation (70-80) % VBG Base Excess (0-4) Sodium (133-145) mmol/L Potassium (3.5-5.0) mmol/L Chloride (101-111) mmol/L Carbon Dioxide (22-32) mmol/L Anion Gap (2-11) mmol/L BUN (6-24) mg/dL Creatinine (0.51-0.95) mg/dL Est GFR ( Amer) (>60) Est GFR (Non-Af Amer) (>60) BUN/Creatinine Ratio (8-20) Glucose (70-100) mg/dL Lactic Acid (0.5-2.0) mmol/L Calcium (8.6-10.3) mg/dL Phosphorus (2.5-5.0) mg/dL Magnesium (1.9-2.7) mg/dL Total Bilirubin (0.2-1.0) mg/dL AST (13-39) U/L ALT (7-52) U/L Alkaline Phosphatase (34-104) U/L Troponin I (<0.04) ng/mL B-Natriuretic Peptide ( - 100) pg/mL Total Protein (6.4-8.9) g/dL Albumin (3.2-5.2) g/dL Globulin (2-4) g/dL Albumin/Globulin Ratio (1-3) Urine Color [place] Urine Appearance Cloudy Urine pH 5.0 (5-9) Ur Specific [place] 1.028 (1.010-1.030) Urine Protein 2+(100 mg/dl) H (Negative) Urine Ketones 1+ H (Negative) Urine Blood 2+ H (Negative) Urine Nitrate Negative (Negative) Urine Bilirubin Negative (Negative) Urine Urobilinogen Negative (Negative) Ur Leukocyte Esterase Negative (Negative) Urine WBC (Auto) 2+(11-20/hpf) H (Absent) Urine RBC (Auto) 3+(>10/hpf) H (Absent) Urine Bacteria Absent (Absent) Urine Glucose Negative (Negative) Urine Ascorbic Acid * H (Negative) Influenza A (Rapid) (Negative) Influenza B (Rapid) (Negative) 09/25/16 09/25/16 09/25/16 Range/Units 11:51 11:51 11:51 WBC (3.5-10.8) 10^3/ul RBC (4.0-5.4) 10^6/ul Hgb (12.0-16.0) g/dl Hct (35-47) % MCV (80-97) fL MCH (27-31) pg MCHC (31-36) g/dl RDW (10.5-15) % Plt Count (150-450) 10^3/ul MPV (7.4-10.4) um3 Neut % (Auto) (38-83) % Lymph % (Auto) (25-47) % [place] % (Auto) (1-9) % Eos % (Auto) (0-6) % Baso % (Auto) (0-2) % Absolute Neuts (auto) (1.5-7.7) 10^3/ul Absolute Lymphs (auto) (1.0-4.8) 10^3/ul Absolute Monos (auto) (0-0.8) 10^3/ul Absolute Eos (auto) (0-0.6) 10^3/ul Absolute Basos (auto) (0-0.2) 10^3/ul Absolute Nucleated RBC 10^3/ul Nucleated RBC % INR (Anticoag Therapy) (0.89-1.11) APTT (26.0-36.3) seconds VBG pH (7.33-7.43) VBG pCO2 (41-51) mmHg VBG pO2 (35-45) mmHg VBG HCO3 (24-28) mmol/L VBG O2 Saturation (70-80) % VBG Base Excess (0-4) Sodium 152 H (133-145) mmol/L Potassium 3.4 L (3.5-5.0) mmol/L Chloride 112 H (101-111) mmol/L Carbon Dioxide 27 (22-32) mmol/L Anion Gap 13 H (2-11) mmol/L BUN 40 H (6-24) mg/dL Creatinine 1.02 H (0.51-0.95) mg/dL Est GFR ( Amer) 67.2 (>60) Est GFR (Non-Af Amer) 52.3 (>60) BUN/Creatinine Ratio 39.2 H (8-20) Glucose 137 H (70-100) mg/dL Lactic Acid 3.0 H* (0.5-2.0) mmol/L Calcium 9.4 (8.6-10.3) mg/dL Phosphorus 3.3 (2.5-5.0) mg/dL Magnesium 2.6 (1.9-2.7) mg/dL Total Bilirubin 0.60 (0.2-1.0) mg/dL AST 18 (13-39) U/L ALT 12 (7-52) U/L Alkaline Phosphatase 66 (34-104) U/L Troponin I 0.14 H* (<0.04) ng/mL B-Natriuretic Peptide 458 H ( - 100) pg/mL Total Protein 6.8 (6.4-8.9) g/dL Albumin 3.0 L (3.2-5.2) g/dL Globulin 3.8 (2-4) g/dL Albumin/Globulin Ratio 0.8 L (1-3) Urine Color Urine Appearance Urine pH (5-9) Ur Specific [place] (1.010-1.030) Urine Protein (Negative) Urine Ketones (Negative) Urine Blood (Negative) Urine Nitrate (Negative) Urine Bilirubin (Negative) Urine Urobilinogen (Negative) Ur Leukocyte Esterase (Negative) Urine WBC (Auto) (Absent) Urine RBC (Auto) (Absent) Urine Bacteria (Absent) Urine Glucose (Negative) Urine Ascorbic Acid (Negative) Influenza A (Rapid) (Negative) Influenza B (Rapid) (Negative) 09/25/16 09/25/16 Range/Units 12:27 13:05 WBC (3.5-10.8) 10^3/ul RBC (4.0-5.4) 10^6/ul Hgb (12.0-16.0) g/dl Hct (35-47) % MCV (80-97) fL MCH (27-31) pg MCHC (31-36) g/dl RDW (10.5-15) % Plt Count (150-450) 10^3/ul MPV (7.4-10.4) um3 Neut % (Auto) (38-83) % Lymph % (Auto) (25-47) % [place] % (Auto) (1-9) % Eos % (Auto) (0-6) % Baso % (Auto) (0-2) % Absolute Neuts (auto) (1.5-7.7) 10^3/ul Absolute Lymphs (auto) (1.0-4.8) 10^3/ul Absolute Monos (auto) (0-0.8) 10^3/ul Absolute Eos (auto) (0-0.6) 10^3/ul Absolute Basos (auto) (0-0.2) 10^3/ul Absolute Nucleated RBC 10^3/ul Nucleated RBC % INR (Anticoag Therapy) (0.89-1.11) APTT (26.0-36.3) seconds VBG pH 7.45 H (7.33-7.43) VBG pCO2 39 L (41-51) mmHg VBG pO2 57 H (35-45) mmHg VBG HCO3 27.0 (24-28) mmol/L VBG O2 Saturation 91.0 H (70-80) % VBG Base Excess 3.0 (0-4) Sodium (133-145) mmol/L Potassium (3.5-5.0) mmol/L Chloride (101-111) mmol/L Carbon Dioxide (22-32) mmol/L Anion Gap (2-11) mmol/L BUN (6-24) mg/dL Creatinine (0.51-0.95) mg/dL Est GFR ( Amer) (>60) Est GFR (Non-Af Amer) (>60) BUN/Creatinine Ratio (8-20) Glucose (70-100) mg/dL Lactic Acid (0.5-2.0) mmol/L Calcium (8.6-10.3) mg/dL Phosphorus (2.5-5.0) mg/dL Magnesium (1.9-2.7) mg/dL Total Bilirubin (0.2-1.0) mg/dL AST (13-39) U/L ALT (7-52) U/L Alkaline Phosphatase (34-104) U/L Troponin I (<0.04) ng/mL B-Natriuretic Peptide ( - 100) pg/mL Total Protein (6.4-8.9) g/dL Albumin (3.2-5.2) g/dL Globulin (2-4) g/dL Albumin/Globulin Ratio (1-3) Urine Color Urine Appearance Urine pH (5-9) Ur Specific [place] (1.010-1.030) Urine Protein (Negative) Urine Ketones (Negative) Urine Blood (Negative) Urine Nitrate (Negative) Urine Bilirubin (Negative) Urine Urobilinogen (Negative) Ur Leukocyte Esterase (Negative) Urine WBC (Auto) (Absent) Urine RBC (Auto) (Absent) Urine Bacteria (Absent) Urine Glucose (Negative) Urine Ascorbic Acid (Negative) Influenza A (Rapid) Negative (Negative) Influenza B (Rapid) Negative (Negative) Microbiology and Other Data: Microbiology 09/29/16 08:34 Stool Gross Appearance - Final Stool C. difficile DNA Amplification - Final 027 Presumptive NEGATIVE Toxigenic C.diff NEGATIVE 09/25/16 17:50 Nasal Screen MRSA (PCR)(MARY) - Final Nasal Mrsa Negative Assess/Plan/Problems-Billing Assessment: - Patient Problems (1) Acute respiratory failure Comment: Suspect in setting of PNA. Has been postulated viral verus bacterial. Received 7 days zosyn and full course azithromycin. Last fever yesterday evening. 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 Check chest XRAY now. Lasix IV now and re evaluate oxygen demand If continues to need 10L mask will transfer back to ICU Consider reinstating abx if fever returns (2) Diarrhea Comment: Suspect in setting of abx. Last abx 3 days prior Rectal tube in place check fecal lactoferrin and stool culture (3) Acute kidney injury Comment: resolved (4) CLL (chronic lymphocytic leukemia) Comment: Contributes to difficulty interpreting WBC (5) Elevated troponin Comment: suspected demand in setting of sever sepsis present on admission No indication for stress at this point (6) Encephalopathy acute Comment: Multifactoral including critical illness, hypoxia, PNA with underlying dementia. Monitor Has history of CVA. If fails to improve can consider MRI to eval for subacute infarct (7) DVT prophylaxis Comment: HSQ
--- NOTE | 2016-10-04 11:25 | RAD ---
INDICATION: Hypoxia. COMPARISON: Comparison is made with a prior study from October 03, 2016. TECHNIQUE: A portable view of the chest was obtained. FINDINGS: Cardiac and mediastinal contours appear to be within normal limits. There are bilateral infiltrates which are most prominent at the left lung base and unchanged from the prior exam. No pleural effusion is seen. IMPRESSION: BILATERAL INFILTRATES, UNCHANGED.
--- NOTE | 2016-10-04 18:53 | RAD ---
INDICATION: Abdominal pain COMPARISON: None TECHNIQUE: Erect and supine views of the abdomen are submitted. FINDINGS: Bones: There are no acute bony findings. Soft tissues: The soft tissues appear normal. The psoas margins are sharp. Bowel gas pattern: Normal Calcifications: There are no abnormal calcifications. Other: None IMPRESSION: NO ACUTE DIAGNOSTIC FINDINGS.
[2016-10-05] MEDS: Heparin VIAL(*) 5000 UNITS/ML VIAL (FIVE THOUSAND) SUBCUT SCH ×3 (05:16→21:02)
[2016-10-05 06:42] LABS: Hematocrit 35 % (35-47); Hemoglobin 11.4 g/dl (12.0-16.0); Mean Corpuscular HGB Conc 33 g/dl (31-36); Mean Corpuscular Hemoglobin 28 pg (27-31); Mean Corpuscular Volume 87 fL (80-97); Mean Platelet Volume 10 um3 (7.4-10.4); Red Blood Count 4.01 10^6/ul (4.0-5.4); Red Cell Distribution Width 16 % (10.5-15); White Blood Count 35.5 10^3/ul (3.5-10.8)
[2016-10-05 06:51] LABS: Add Diff/Slide Review? Slide Review Added; Comments Flag Yes
[2016-10-05 07:50] LABS: BUN/Creatinine Ratio 26.8 (8-20); Calcium 8.2 mg/dL (8.6-10.3); EGFR African American 134.3 (>60); EGFR Non-African American 104.4 (>60); Magnesium 2.1 mg/dL (1.9-2.7); Potassium 4.1 mmol/L (3.5-5.0)
[2016-10-05 08:53] LABS: Add Path Review? YES; Immature Granulocytes 4 % (0-9); Myelocytes % 3 % (0-1); Neutrophil % 31 % (38-83)
[2016-10-05 08:55] LABS: RBC Morphology Normal (Normal)
[2016-10-05] MEDS: Famotidine TAB* 20 MG PO SCH ×2 (09:03→20:07)
[2016-10-05] MEDS: D5NS 0.9% 1000 ML BAG* 1,000 ML IV SCH (09:03)
[2016-10-05] MEDS ORDERED: Furosemide IV* 10 MG/ML 2 ML VIAL (20 MG) IV ONE (12:22)
--- NOTE | 2016-10-05 12:27 | PN ---
Subjective Date of Service: 10/05/16 Interval History: Seen with son at bedside More awake today Able to deny pain. Identified son at bedside. Objective Active Medications: Albuterol/Ipratropium (Duoneb Neb.Sophia*) 1 neb INH Q4H PRN PRN Reason: SOB/WHEEZING Last Admin: 10/02/16 00:43 Dose: 1 neb Famotidine (Pepcid Tab*) 20 mg PO BID [facility] Last Admin: 10/05/16 09:03 Dose: 20 mg Furosemide (Lasix Iv*) 20 mg IV ONCE ONE Stop: 10/05/16 12:23 Heparin Sodium (Porcine) (Heparin Vial(*)) 5,000 units SUBCUT Q8HR [facility] Last Admin: 10/05/16 05:16 Dose: 5,000 units Heparin Sodium (Porcine) (Heparin Flush Picc/Ml/Cvc(*)) 1 - 3 ml FLUSH 0600, 1800 [facility] PRN Reason: Protocol Last Admin: 10/05/16 05:17 Dose: Not Given Hydralazine HCl (Apresoline Iv*) 10 mg IV Q4H PRN PRN Reason: Systolic >175 Last Admin: 10/02/16 22:19 Dose: 10 mg Dextrose/Sodium Chloride (D5ns 0.9% 1000 Ml Bag*) 1,000 mls @ 10 mls/hr IV PER RATE [facility] Last Admin: 10/05/16 09:03 Dose: 10 mls/hr Ondansetron HCl (Zofran Inj*) 4 mg IV Q6H PRN PRN Reason: NAUSEA Last Admin: 10/01/16 08:25 Dose: 4 mg Vital Signs 10/04/16 10/04/16 10/04/16 15:21 15:30 16:00 Temperature 98.4 F Pulse Rate 95 98 98 Respiratory 24 27 26 Rate Blood Pressure 130/63 126/63 (mmHg) O2 Sat by Pulse 95 95 94 Oximetry 10/04/16 10/04/16 10/04/16 16:02 16:30 16:35 Temperature Pulse Rate 98 99 95 Respiratory 29 26 22 Rate Blood Pressure 117/52 128/72 (mmHg) O2 Sat by Pulse 96 94 94 Oximetry 10/04/16 10/04/16 10/04/16 17:00 17:53 18:00 Temperature Pulse Rate 101 Respiratory 27 24 21 Rate Blood Pressure 117/56 108/85 (mmHg) O2 Sat by Pulse 95 Oximetry 10/04/16 10/04/16 10/04/16 18:59 19:00 19:41 Temperature 98.0 F Pulse Rate 100 Respiratory 22 30 20 Rate Blood Pressure (mmHg) O2 Sat by Pulse 94 92 Oximetry 10/04/16 10/04/16 10/04/16 19:50 20:00 20:37 Temperature Pulse Rate 101 108 105 Respiratory 26 25 28 Rate Blood Pressure 139/59 133/119 134/56 (mmHg) O2 Sat by Pulse 95 94 90 Oximetry 10/04/16 10/04/16 10/04/16 21:00 22:00 23:00 Temperature Pulse Rate 103 95 Respiratory 32 19 25 Rate Blood Pressure 126/56 (mmHg) O2 Sat by Pulse 96 98 Oximetry 10/04/16 10/05/16 10/05/16 23:05 00:00 01:00 Temperature Pulse Rate 92 98 Respiratory 22 18 29 Rate Blood Pressure (mmHg) O2 Sat by Pulse 97 96 Oximetry 10/05/16 10/05/16 10/05/16 02:00 02:20 03:00 Temperature Pulse Rate 86 98 88 Respiratory 21 20 24 Rate Blood Pressure (mmHg) O2 Sat by Pulse 98 94 95 Oximetry 10/05/16 10/05/16 10/05/16 03:23 03:35 04:00 Temperature 98.3 F Pulse Rate 86 Respiratory 25 18 25 Rate Blood Pressure 112/76 112/70 (mmHg) O2 Sat by Pulse 96 Oximetry 10/05/16 10/05/16 10/05/16 05:00 05:55 05:56 Temperature Pulse Rate 77 80 Respiratory 21 32 27 Rate Blood Pressure 146/118 114/67 (mmHg) O2 Sat by Pulse 96 92 Oximetry 10/05/16 10/05/16 10/05/16 06:00 07:00 07:41 Temperature 98.7 F Pulse Rate 84 78 83 Respiratory 20 24 Rate Blood Pressure (mmHg) O2 Sat by Pulse 96 93 95 Oximetry 10/05/16 10/05/16 10/05/16 08:00 08:58 09:00 Temperature Pulse Rate 79 76 84 Respiratory 18 18 24 Rate Blood Pressure (mmHg) O2 Sat by Pulse 99 94 88 Oximetry 10/05/16 10/05/16 10/05/16 10:00 11:00 11:12 Temperature 98.6 F Pulse Rate 86 84 Respiratory 25 23 24 Rate Blood Pressure 122/50 (mmHg) O2 Sat by Pulse 96 97 Oximetry 10/05/16 12:00 Temperature Pulse Rate 86 Respiratory 26 Rate Blood Pressure (mmHg) O2 Sat by Pulse 93 Oximetry Oxygen Devices in Use Now: Simple Face Mask - 91% on RA when FM taken off Appearance: NAD Eyes: No Scleral Icterus, PERRLA Ears/Nose/Mouth/Throat: Clear Oropharnyx, - - dry mm Neck: NL Appearance and Movements; NL JVP, Trachea Midline Respiratory: Symmetrical Chest Expansion and Respiratory Effort, Clear to Auscultation Cardiovascular: NL Sounds; No Murmurs; No JVD, RRR Abdominal: NL Sounds; No Tenderness; No Distention, No Hepatosplenomegaly Lymphatic: No Cervical Adenopathy Extremities: No Edema Skin: No Rash or Ulcers Neurological: - - AOx1 to self, answers questions intermittently, identifies son , moves all extremities, difficulty following simple commands Result Diagrams: 10/05/16 05:31 10/05/16 05:31 Additional Lab and Data: Lab Results 09/25/16 09/25/16 09/25/16 Range/Units 11:51 11:51 11:51 WBC 43.4 H (3.5-10.8) 10^3/ul RBC 5.29 (4.0-5.4) 10^6/ul Hgb 14.7 (12.0-16.0) g/dl Hct 47 (35-47) % MCV 89 (80-97) fL MCH 28 (27-31) pg MCHC 32 (31-36) g/dl RDW 15 (10.5-15) % Plt Count 286 (150-450) 10^3/ul MPV 10 (7.4-10.4) um3 Neut % (Auto) 25.7 L (38-83) % Lymph % (Auto) 72.1 H (25-47) % [place] % (Auto) 2.2 (1-9) % Eos % (Auto) 0 (0-6) % Baso % (Auto) 0 (0-2) % Absolute Neuts (auto) 11.1 H (1.5-7.7) 10^3/ul Absolute Lymphs (auto) 31.3 H (1.0-4.8) 10^3/ul Absolute Monos (auto) 1.0 H (0-0.8) 10^3/ul Absolute Eos (auto) 0 (0-0.6) 10^3/ul Absolute Basos (auto) 0 (0-0.2) 10^3/ul Absolute Nucleated RBC 0.05 10^3/ul Nucleated RBC % 0.1 INR (Anticoag Therapy) 1.29 H (0.89-1.11) APTT 26.8 (26.0-36.3) seconds VBG pH (7.33-7.43) VBG pCO2 (41-51) mmHg VBG pO2 (35-45) mmHg VBG HCO3 (24-28) mmol/L VBG O2 Saturation (70-80) % VBG Base Excess (0-4) Sodium (133-145) mmol/L Potassium (3.5-5.0) mmol/L Chloride (101-111) mmol/L Carbon Dioxide (22-32) mmol/L Anion Gap (2-11) mmol/L BUN (6-24) mg/dL Creatinine (0.51-0.95) mg/dL Est GFR ( Amer) (>60) Est GFR (Non-Af Amer) (>60) BUN/Creatinine Ratio (8-20) Glucose (70-100) mg/dL Lactic Acid (0.5-2.0) mmol/L Calcium (8.6-10.3) mg/dL Phosphorus (2.5-5.0) mg/dL Magnesium (1.9-2.7) mg/dL Total Bilirubin (0.2-1.0) mg/dL AST (13-39) U/L ALT (7-52) U/L Alkaline Phosphatase (34-104) U/L Troponin I (<0.04) ng/mL B-Natriuretic Peptide ( - 100) pg/mL Total Protein (6.4-8.9) g/dL Albumin (3.2-5.2) g/dL Globulin (2-4) g/dL Albumin/Globulin Ratio (1-3) Urine Color [place] Urine Appearance Cloudy Urine pH 5.0 (5-9) Ur Specific [place] 1.028 (1.010-1.030) Urine Protein 2+(100 mg/dl) H (Negative) Urine Ketones 1+ H (Negative) Urine Blood 2+ H (Negative) Urine Nitrate Negative (Negative) Urine Bilirubin Negative (Negative) Urine Urobilinogen Negative (Negative) Ur Leukocyte Esterase Negative (Negative) Urine WBC (Auto) 2+(11-20/hpf) H (Absent) Urine RBC (Auto) 3+(>10/hpf) H (Absent) Urine Bacteria Absent (Absent) Urine Glucose Negative (Negative) Urine Ascorbic Acid * H (Negative) Influenza A (Rapid) (Negative) Influenza B (Rapid) (Negative) 09/25/16 09/25/16 09/25/16 Range/Units 11:51 11:51 11:51 WBC (3.5-10.8) 10^3/ul RBC (4.0-5.4) 10^6/ul Hgb (12.0-16.0) g/dl Hct (35-47) % MCV (80-97) fL MCH (27-31) pg MCHC (31-36) g/dl RDW (10.5-15) % Plt Count (150-450) 10^3/ul MPV (7.4-10.4) um3 Neut % (Auto) (38-83) % Lymph % (Auto) (25-47) % [place] % (Auto) (1-9) % Eos % (Auto) (0-6) % Baso % (Auto) (0-2) % Absolute Neuts (auto) (1.5-7.7) 10^3/ul Absolute Lymphs (auto) (1.0-4.8) 10^3/ul Absolute Monos (auto) (0-0.8) 10^3/ul Absolute Eos (auto) (0-0.6) 10^3/ul Absolute Basos (auto) (0-0.2) 10^3/ul Absolute Nucleated RBC 10^3/ul Nucleated RBC % INR (Anticoag Therapy) (0.89-1.11) APTT (26.0-36.3) seconds VBG pH (7.33-7.43) VBG pCO2 (41-51) mmHg VBG pO2 (35-45) mmHg VBG HCO3 (24-28) mmol/L VBG O2 Saturation (70-80) % VBG Base Excess (0-4) Sodium 152 H (133-145) mmol/L Potassium 3.4 L (3.5-5.0) mmol/L Chloride 112 H (101-111) mmol/L Carbon Dioxide 27 (22-32) mmol/L Anion Gap 13 H (2-11) mmol/L BUN 40 H (6-24) mg/dL Creatinine 1.02 H (0.51-0.95) mg/dL Est GFR ( Amer) 67.2 (>60) Est GFR (Non-Af Amer) 52.3 (>60) BUN/Creatinine Ratio 39.2 H (8-20) Glucose 137 H (70-100) mg/dL Lactic Acid 3.0 H* (0.5-2.0) mmol/L Calcium 9.4 (8.6-10.3) mg/dL Phosphorus 3.3 (2.5-5.0) mg/dL Magnesium 2.6 (1.9-2.7) mg/dL Total Bilirubin 0.60 (0.2-1.0) mg/dL AST 18 (13-39) U/L ALT 12 (7-52) U/L Alkaline Phosphatase 66 (34-104) U/L Troponin I 0.14 H* (<0.04) ng/mL B-Natriuretic Peptide 458 H ( - 100) pg/mL Total Protein 6.8 (6.4-8.9) g/dL Albumin 3.0 L (3.2-5.2) g/dL Globulin 3.8 (2-4) g/dL Albumin/Globulin Ratio 0.8 L (1-3) Urine Color Urine Appearance Urine pH (5-9) Ur Specific [place] (1.010-1.030) Urine Protein (Negative) Urine Ketones (Negative) Urine Blood (Negative) Urine Nitrate (Negative) Urine Bilirubin (Negative) Urine Urobilinogen (Negative) Ur Leukocyte Esterase (Negative) Urine WBC (Auto) (Absent) Urine RBC (Auto) (Absent) Urine Bacteria (Absent) Urine Glucose (Negative) Urine Ascorbic Acid (Negative) Influenza A (Rapid) (Negative) Influenza B (Rapid) (Negative) 09/25/16 09/25/16 Range/Units 12:27 13:05 WBC (3.5-10.8) 10^3/ul RBC (4.0-5.4) 10^6/ul Hgb (12.0-16.0) g/dl Hct (35-47) % MCV (80-97) fL MCH (27-31) pg MCHC (31-36) g/dl RDW (10.5-15) % Plt Count (150-450) 10^3/ul MPV (7.4-10.4) um3 Neut % (Auto) (38-83) % Lymph % (Auto) (25-47) % [place] % (Auto) (1-9) % Eos % (Auto) (0-6) % Baso % (Auto) (0-2) % Absolute Neuts (auto) (1.5-7.7) 10^3/ul Absolute Lymphs (auto) (1.0-4.8) 10^3/ul Absolute Monos (auto) (0-0.8) 10^3/ul Absolute Eos (auto) (0-0.6) 10^3/ul Absolute Basos (auto) (0-0.2) 10^3/ul Absolute Nucleated RBC 10^3/ul Nucleated RBC % INR (Anticoag Therapy) (0.89-1.11) APTT (26.0-36.3) seconds VBG pH 7.45 H (7.33-7.43) VBG pCO2 39 L (41-51) mmHg VBG pO2 57 H (35-45) mmHg VBG HCO3 27.0 (24-28) mmol/L VBG O2 Saturation 91.0 H (70-80) % VBG Base Excess 3.0 (0-4) Sodium (133-145) mmol/L Potassium (3.5-5.0) mmol/L Chloride (101-111) mmol/L Carbon Dioxide (22-32) mmol/L Anion Gap (2-11) mmol/L BUN (6-24) mg/dL Creatinine (0.51-0.95) mg/dL Est GFR ( Amer) (>60) Est GFR (Non-Af Amer) (>60) BUN/Creatinine Ratio (8-20) Glucose (70-100) mg/dL Lactic Acid (0.5-2.0) mmol/L Calcium (8.6-10.3) mg/dL Phosphorus (2.5-5.0) mg/dL Magnesium (1.9-2.7) mg/dL Total Bilirubin (0.2-1.0) mg/dL AST (13-39) U/L ALT (7-52) U/L Alkaline Phosphatase (34-104) U/L Troponin I (<0.04) ng/mL B-Natriuretic Peptide ( - 100) pg/mL Total Protein (6.4-8.9) g/dL Albumin (3.2-5.2) g/dL Globulin (2-4) g/dL Albumin/Globulin Ratio (1-3) Urine Color Urine Appearance Urine pH (5-9) Ur Specific [place] (1.010-1.030) Urine Protein (Negative) Urine Ketones (Negative) Urine Blood (Negative) Urine Nitrate (Negative) Urine Bilirubin (Negative) Urine Urobilinogen (Negative) Ur Leukocyte Esterase (Negative) Urine WBC (Auto) (Absent) Urine RBC (Auto) (Absent) Urine Bacteria (Absent) Urine Glucose (Negative) Urine Ascorbic Acid (Negative) Influenza A (Rapid) Negative (Negative) Influenza B (Rapid) Negative (Negative) Microbiology and Other Data: Microbiology 09/29/16 08:34 Stool Gross Appearance - Final Stool C. difficile DNA Amplification - Final 027 Presumptive NEGATIVE Toxigenic C.diff NEGATIVE 09/25/16 17:50 Nasal Screen MRSA (PCR)(MARY) - Final Nasal Mrsa Negative Assess/Plan/Problems-Billing Assessment: 81 yo F admitted with respiratory failure in setting of PNA - Patient Problems (1) Acute respiratory failure Comment: Suspect in setting of PNA. Has been postulated viral verus bacterial. Received 7 days zosyn and full course azithromycin. Last fever 10/03/16 Combined systolic and diastolic CHF likely contributing to pulmonary vascular congestion and hypoxia. XRAY largely unchanged despite good UOP and net negative fluid balance However, room air oxygenation improved Lasix 20 IV now (2) Diarrhea Comment: Suspect in setting of abx. Last abx 4 days prior Rectal tube in place stool culture (3) Acute kidney injury Comment: resolved (4) CLL (chronic lymphocytic leukemia) Comment: Contributes to difficulty interpreting WBC add ESR, CRP, and procalcitonin (5) Elevated troponin Comment: suspected demand in setting of sever sepsis present on admission No indication for stress at this point (6) Encephalopathy acute Comment: Multifactoral including critical illness, hypoxia, PNA with underlying dementia. Suspect contributig acute hypoactive delerium (7) DVT prophylaxis Comment: HSQ
--- NOTE | 2016-10-05 12:54 | RAD ---
HISTORY: Evaluate infiltrates, acute hypoxic respiratory failure COMPARISONS: October 04, 2016 VIEWS:1: Single frontal portable view of the chest at 11:28 AM FINDINGS: LINES AND TUBES: None. CARDIOMEDIASTINAL SILHOUETTE: The cardiomediastinal silhouette is normal for portable technique. PLEURA: The costophrenic angles are sharp. No pleural abnormalities are noted. LUNG PARENCHYMA: There is persistent patchy alveolar opacification of the left lower lung field. There is minimal alveolar opacification of the right lower lung field near the cardiophrenic angle, somewhat improved from the previous examination ABDOMEN: The upper abdomen is clear. There is no subphrenic gas. BONES AND SOFT TISSUES: No bone or soft tissue abnormalities are noted. IMPRESSION: PERSISTENT LEFT AND MILDLY IMPROVED RIGHT BIBASILAR ATELECTASIS VERSUS CONSOLIDATION
[2016-10-05 13:07] LABS: Erythrocyte Sed Rate 67 mm/Hr (0-40)
[2016-10-05 14:26] LABS: C Reactive Protein 37.04 mg/L (< 5.00)
[2016-10-05] MEDS ORDERED: Diatrizoate Meg/Sod(CONTRAST) 30 ML ORAL.SOLN PO ONE (16:51)
[2016-10-05] MEDS: Acetaminophen TAB* 325 MG PO PRN (17:22)
[2016-10-05] MEDS ORDERED: Iohexol 300* (CONTRAST) 10 ML SDV IV ONE (18:32)
--- NOTE | 2016-10-05 19:33 | RAD ---
INDICATION: Abdominal pain. Leukocytosis. COMPARISON: None TECHNIQUE: Axial source images were obtained from the hemidiaphragms to the symphysis pubis following administration of oral and intravenous contrast. 96 mL Omnipaque 300 was utilized. Coronal and sagittal reconstructed images were acquired. Lung bases: There are bibasilar consolidative changes.. Liver: The liver is normal in size. There are no masses. There is no ductal dilatation. Gallbladder: Cholelithiasis. Spleen: There is moderate splenomegaly. There are no masses. Pancreas: There is no focal pancreatic mass or ductal dilatation. Adrenal glands: There is no evidence of adrenal mass. Kidneys: The kidneys are normal in size and position. There are prompt nephrograms and there is prompt excretion bilaterally. There is a 6.9 cm upper pole left renal cyst and a 5.8 cm lower pole left renal cyst there is 2.3 cm mid pole right renal cyst. There is no evidence of nephrolithiasis. Adenopathy: There is no evidence of adenopathy by size criteria. Fluid collections: There are no free or localized fluid collections. Vessels:There are advanced atherosclerotic changes involving the aorta and iliac vessels. There is no focal aneurysm. The IVC appears normal. GI tract: There are no acute CT bowel findings. There is no obstruction. The stomach and small bowel appear normal. There are no acute abnormalities of the lower GI tract. There is a rectal tube which presumably is related to incontinence Pelvic organs: The uterus and adnexa appear normal Bladder: The bladder is decompressed with a Wu catheter. Abdominal and pelvic soft tissues: The extraperitoneal abdominal and pelvic soft tissues appear normal.. Osseous structures: There are no acute osseous findings. Other: None IMPRESSION: 1. Bibasilar consolidative changes. Suggest a follow-up chest x-ray. 2. Cholelithiasis 3. Splenomegaly 4. Renal cysts. 5. Atherosclerotic changes.
[2016-10-06 04:59] LABS: Hematocrit 36 % (35-47); Hemoglobin 11.6 g/dl (12.0-16.0); Mean Corpuscular HGB Conc 32 g/dl (31-36); Mean Corpuscular Hemoglobin 28 pg (27-31); Mean Corpuscular Volume 87 fL (80-97); Mean Platelet Volume 10 um3 (7.4-10.4); Red Blood Count 4.14 10^6/ul (4.0-5.4); Red Cell Distribution Width 16 % (10.5-15)
[2016-10-06 05:01] LABS: Add Diff/Slide Review? Slide Review Added; White Blood Count 37.2 10^3/ul (3.5-10.8)
[2016-10-06] MEDS: Heparin VIAL(*) 5000 UNITS/ML VIAL (FIVE THOUSAND) SUBCUT SCH ×3 (05:10→20:35)
[2016-10-06 05:32] LABS: BUN/Creatinine Ratio 23.7 (8-20); Calcium 8.3 mg/dL (8.6-10.3); EGFR African American 126.5 (>60); EGFR Non-African American 98.3 (>60); Potassium 3.8 mmol/L (3.5-5.0)
[2016-10-06 05:33] LABS: Comments Flag Yes
[2016-10-06] MEDS: Famotidine TAB* 20 MG PO SCH ×2 (09:07→20:35)
[2016-10-06] MEDS: Acetaminophen TAB* 325 MG PO PRN (09:57)
[2016-10-06] MEDS ORDERED: Furosemide IV* 10 MG/ML 2 ML VIAL (20 MG) IV ONE (11:22)
--- NOTE | 2016-10-06 11:48 | PN ---
Subjective Date of Service: 10/06/16 Interval History: Much more awake today Does not want to wear oxygen. Repeatedly removes 89-90% on RA at rest Able to tell me her name and follow simple commands today. Denies any pain but is not very interactive with ROS Net negative 2300cc after 20mg IV lasix yesterday Objective Active Medications: Acetaminophen (Tylenol Tab*) 650 mg PO Q6H PRN PRN Reason: PAIN Last Admin: 10/06/16 09:57 Dose: 650 mg Albuterol/Ipratropium (Duoneb Neb.Sophia*) 1 neb INH Q4H PRN PRN Reason: SOB/WHEEZING Last Admin: 10/02/16 00:43 Dose: 1 neb Famotidine (Pepcid Tab*) 20 mg PO BID [facility] Last Admin: 10/06/16 09:07 Dose: 20 mg Heparin Sodium (Porcine) (Heparin Vial(*)) 5,000 units SUBCUT Q8HR [facility] Last Admin: 10/06/16 05:10 Dose: 5,000 units Heparin Sodium (Porcine) (Heparin Flush Picc/Ml/Cvc(*)) 1 - 3 ml FLUSH 0600, 1800 [facility] PRN Reason: Protocol Last Admin: 10/06/16 05:12 Dose: Not Given Hydralazine HCl (Apresoline Iv*) 10 mg IV Q4H PRN PRN Reason: Systolic >175 Last Admin: 10/02/16 22:19 Dose: 10 mg Dextrose/Sodium Chloride (D5ns 0.9% 1000 Ml Bag*) 1,000 mls @ 10 mls/hr IV PER RATE [facility] Last Admin: 10/05/16 09:03 Dose: 10 mls/hr Ondansetron HCl (Zofran Inj*) 4 mg IV Q6H PRN PRN Reason: NAUSEA Last Admin: 10/01/16 08:25 Dose: 4 mg Vital Signs 10/05/16 10/05/16 10/05/16 12:00 13:00 14:00 Temperature Pulse Rate 86 88 93 Respiratory 26 27 29 Rate Blood Pressure (mmHg) O2 Sat by Pulse 93 95 92 Oximetry 10/05/16 10/05/16 10/05/16 15:00 15:35 15:39 Temperature 98.7 F Pulse Rate 99 103 Respiratory 32 20 Rate Blood Pressure 122/63 (mmHg) O2 Sat by Pulse 93 94 Oximetry 10/05/16 10/05/16 10/05/16 16:00 18:47 19:40 Temperature 97.6 F Pulse Rate 95 104 Respiratory 21 21 22 Rate Blood Pressure 142/89 (mmHg) O2 Sat by Pulse 94 93 97 Oximetry 10/05/16 10/06/16 10/06/16 23:38 02:18 03:48 Temperature 98.6 F Pulse Rate 89 93 84 Respiratory 16 20 20 Rate Blood Pressure 125/55 123/60 (mmHg) O2 Sat by Pulse 90 92 94 Oximetry 10/06/16 10/06/16 10/06/16 04:15 07:15 08:00 Temperature 99.3 F 99.2 F Pulse Rate 89 Respiratory 16 16 Rate Blood Pressure 122/55 (mmHg) O2 Sat by Pulse 92 92 Oximetry 10/06/16 10/06/16 08:01 09:34 Temperature Pulse Rate 86 Respiratory 16 14 Rate Blood Pressure (mmHg) O2 Sat by Pulse 92 Oximetry Oxygen Devices in Use Now: None - 90% RA Appearance: sitting up in bed, NAD Eyes: No Scleral Icterus, PERRLA Ears/Nose/Mouth/Throat: Clear Oropharnyx, Mucous Membranes Moist Neck: NL Appearance and Movements; NL JVP, Trachea Midline Respiratory: Symmetrical Chest Expansion and Respiratory Effort, - - decreased in bases, will not take deep breaths for evaluation Cardiovascular: RRR Abdominal: - - soft, ND, +bs, does not like me palpating abdomen Lymphatic: No Cervical Adenopathy Extremities: No Edema, No Clubbing, Cyanosis Skin: No Rash or Ulcers Neurological: - - AOx1 to self, tells me we are in [place] and it is 2011. Moves her left hand when asked. No apparent cranial nerve deficits Result Diagrams: 10/06/16 04:16 10/06/16 04:16 Additional Lab and Data: Lab Results 09/25/16 09/25/16 09/25/16 Range/Units 11:51 11:51 11:51 WBC 43.4 H (3.5-10.8) 10^3/ul RBC 5.29 (4.0-5.4) 10^6/ul Hgb 14.7 (12.0-16.0) g/dl Hct 47 (35-47) % MCV 89 (80-97) fL MCH 28 (27-31) pg MCHC 32 (31-36) g/dl RDW 15 (10.5-15) % Plt Count 286 (150-450) 10^3/ul MPV 10 (7.4-10.4) um3 Neut % (Auto) 25.7 L (38-83) % Lymph % (Auto) 72.1 H (25-47) % Tyrrell % (Auto) 2.2 (1-9) % Eos % (Auto) 0 (0-6) % Baso % (Auto) 0 (0-2) % Absolute Neuts (auto) 11.1 H (1.5-7.7) 10^3/ul Absolute Lymphs (auto) 31.3 H (1.0-4.8) 10^3/ul Absolute Monos (auto) 1.0 H (0-0.8) 10^3/ul Absolute Eos (auto) 0 (0-0.6) 10^3/ul Absolute Basos (auto) 0 (0-0.2) 10^3/ul Absolute Nucleated RBC 0.05 10^3/ul Nucleated RBC % 0.1 INR (Anticoag Therapy) 1.29 H (0.89-1.11) APTT 26.8 (26.0-36.3) seconds VBG pH (7.33-7.43) VBG pCO2 (41-51) mmHg VBG pO2 (35-45) mmHg VBG HCO3 (24-28) mmol/L VBG O2 Saturation (70-80) % VBG Base Excess (0-4) Sodium (133-145) mmol/L Potassium (3.5-5.0) mmol/L Chloride (101-111) mmol/L Carbon Dioxide (22-32) mmol/L Anion Gap (2-11) mmol/L BUN (6-24) mg/dL Creatinine (0.51-0.95) mg/dL Est GFR ( Amer) (>60) Est GFR (Non-Af Amer) (>60) BUN/Creatinine Ratio (8-20) Glucose (70-100) mg/dL Lactic Acid (0.5-2.0) mmol/L Calcium (8.6-10.3) mg/dL Phosphorus (2.5-5.0) mg/dL Magnesium (1.9-2.7) mg/dL Total Bilirubin (0.2-1.0) mg/dL AST (13-39) U/L ALT (7-52) U/L Alkaline Phosphatase (34-104) U/L Troponin I (<0.04) ng/mL B-Natriuretic Peptide ( - 100) pg/mL Total Protein (6.4-8.9) g/dL Albumin (3.2-5.2) g/dL Globulin (2-4) g/dL Albumin/Globulin Ratio (1-3) Urine Color [place] Urine Appearance Cloudy Urine pH 5.0 (5-9) Ur Specific [place] 1.028 (1.010-1.030) Urine Protein 2+(100 mg/dl) H (Negative) Urine Ketones 1+ H (Negative) Urine Blood 2+ H (Negative) Urine Nitrate Negative (Negative) Urine Bilirubin Negative (Negative) Urine Urobilinogen Negative (Negative) Ur Leukocyte Esterase Negative (Negative) Urine WBC (Auto) 2+(11-20/hpf) H (Absent) Urine RBC (Auto) 3+(>10/hpf) H (Absent) Urine Bacteria Absent (Absent) Urine Glucose Negative (Negative) Urine Ascorbic Acid * H (Negative) Influenza A (Rapid) (Negative) Influenza B (Rapid) (Negative) 09/25/16 09/25/16 09/25/16 Range/Units 11:51 11:51 11:51 WBC (3.5-10.8) 10^3/ul RBC (4.0-5.4) 10^6/ul Hgb (12.0-16.0) g/dl Hct (35-47) % MCV (80-97) fL MCH (27-31) pg MCHC (31-36) g/dl RDW (10.5-15) % Plt Count (150-450) 10^3/ul MPV (7.4-10.4) um3 Neut % (Auto) (38-83) % Lymph % (Auto) (25-47) % Tyrrell % (Auto) (1-9) % Eos % (Auto) (0-6) % Baso % (Auto) (0-2) % Absolute Neuts (auto) (1.5-7.7) 10^3/ul Absolute Lymphs (auto) (1.0-4.8) 10^3/ul Absolute Monos (auto) (0-0.8) 10^3/ul Absolute Eos (auto) (0-0.6) 10^3/ul Absolute Basos (auto) (0-0.2) 10^3/ul Absolute Nucleated RBC 10^3/ul Nucleated RBC % INR (Anticoag Therapy) (0.89-1.11) APTT (26.0-36.3) seconds VBG pH (7.33-7.43) VBG pCO2 (41-51) mmHg VBG pO2 (35-45) mmHg VBG HCO3 (24-28) mmol/L VBG O2 Saturation (70-80) % VBG Base Excess (0-4) Sodium 152 H (133-145) mmol/L Potassium 3.4 L (3.5-5.0) mmol/L Chloride 112 H (101-111) mmol/L Carbon Dioxide 27 (22-32) mmol/L Anion Gap 13 H (2-11) mmol/L BUN 40 H (6-24) mg/dL Creatinine 1.02 H (0.51-0.95) mg/dL Est GFR ( Amer) 67.2 (>60) Est GFR (Non-Af Amer) 52.3 (>60) BUN/Creatinine Ratio 39.2 H (8-20) Glucose 137 H (70-100) mg/dL Lactic Acid 3.0 H* (0.5-2.0) mmol/L Calcium 9.4 (8.6-10.3) mg/dL Phosphorus 3.3 (2.5-5.0) mg/dL Magnesium 2.6 (1.9-2.7) mg/dL Total Bilirubin 0.60 (0.2-1.0) mg/dL AST 18 (13-39) U/L ALT 12 (7-52) U/L Alkaline Phosphatase 66 (34-104) U/L Troponin I 0.14 H* (<0.04) ng/mL B-Natriuretic Peptide 458 H ( - 100) pg/mL Total Protein 6.8 (6.4-8.9) g/dL Albumin 3.0 L (3.2-5.2) g/dL Globulin 3.8 (2-4) g/dL Albumin/Globulin Ratio 0.8 L (1-3) Urine Color Urine Appearance Urine pH (5-9) Ur Specific [place] (1.010-1.030) Urine Protein (Negative) Urine Ketones (Negative) Urine Blood (Negative) Urine Nitrate (Negative) Urine Bilirubin (Negative) Urine Urobilinogen (Negative) Ur Leukocyte Esterase (Negative) Urine WBC (Auto) (Absent) Urine RBC (Auto) (Absent) Urine Bacteria (Absent) Urine Glucose (Negative) Urine Ascorbic Acid (Negative) Influenza A (Rapid) (Negative) Influenza B (Rapid) (Negative) 09/25/16 09/25/16 Range/Units 12:27 13:05 WBC (3.5-10.8) 10^3/ul RBC (4.0-5.4) 10^6/ul Hgb (12.0-16.0) g/dl Hct (35-47) % MCV (80-97) fL MCH (27-31) pg MCHC (31-36) g/dl RDW (10.5-15) % Plt Count (150-450) 10^3/ul MPV (7.4-10.4) um3 Neut % (Auto) (38-83) % Lymph % (Auto) (25-47) % Tyrrell % (Auto) (1-9) % Eos % (Auto) (0-6) % Baso % (Auto) (0-2) % Absolute Neuts (auto) (1.5-7.7) 10^3/ul Absolute Lymphs (auto) (1.0-4.8) 10^3/ul Absolute Monos (auto) (0-0.8) 10^3/ul Absolute Eos (auto) (0-0.6) 10^3/ul Absolute Basos (auto) (0-0.2) 10^3/ul Absolute Nucleated RBC 10^3/ul Nucleated RBC % INR (Anticoag Therapy) (0.89-1.11) APTT (26.0-36.3) seconds VBG pH 7.45 H (7.33-7.43) VBG pCO2 39 L (41-51) mmHg VBG pO2 57 H (35-45) mmHg VBG HCO3 27.0 (24-28) mmol/L VBG O2 Saturation 91.0 H (70-80) % VBG Base Excess 3.0 (0-4) Sodium (133-145) mmol/L Potassium (3.5-5.0) mmol/L Chloride (101-111) mmol/L Carbon Dioxide (22-32) mmol/L Anion Gap (2-11) mmol/L BUN (6-24) mg/dL Creatinine (0.51-0.95) mg/dL Est GFR ( Amer) (>60) Est GFR (Non-Af Amer) (>60) BUN/Creatinine Ratio (8-20) Glucose (70-100) mg/dL Lactic Acid (0.5-2.0) mmol/L Calcium (8.6-10.3) mg/dL Phosphorus (2.5-5.0) mg/dL Magnesium (1.9-2.7) mg/dL Total Bilirubin (0.2-1.0) mg/dL AST (13-39) U/L ALT (7-52) U/L Alkaline Phosphatase (34-104) U/L Troponin I (<0.04) ng/mL B-Natriuretic Peptide ( - 100) pg/mL Total Protein (6.4-8.9) g/dL Albumin (3.2-5.2) g/dL Globulin (2-4) g/dL Albumin/Globulin Ratio (1-3) Urine Color Urine Appearance Urine pH (5-9) Ur Specific [place] (1.010-1.030) Urine Protein (Negative) Urine Ketones (Negative) Urine Blood (Negative) Urine Nitrate (Negative) Urine Bilirubin (Negative) Urine Urobilinogen (Negative) Ur Leukocyte Esterase (Negative) Urine WBC (Auto) (Absent) Urine RBC (Auto) (Absent) Urine Bacteria (Absent) Urine Glucose (Negative) Urine Ascorbic Acid (Negative) Influenza A (Rapid) Negative (Negative) Influenza B (Rapid) Negative (Negative) Microbiology and Other Data: Microbiology 09/29/16 08:34 Stool Gross Appearance - Final Stool C. difficile DNA Amplification - Final 027 Presumptive NEGATIVE Toxigenic C.diff NEGATIVE 09/25/16 17:50 Nasal Screen MRSA (PCR)(MARY) - Final Nasal Mrsa Negative Assess/Plan/Problems-Billing Assessment: 81 yo F admitted with respiratory failure in setting of PNA - Patient Problems (1) Acute respiratory failure Comment: Suspect in setting of PNA. Has been postulated viral verus bacterial. Received 7 days zosyn and full course azithromycin. Last fever 10/03/16 There is still e/o consolidation on CT although this may be slow radiographic resolution compared to her clinical improvement. Her procalcitonin is now 0.4 although there is none on admission for comparison. 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 Oxygen demand has been improving with continued diuresis Lasix 10 IV now 10/06/16 (2) Diarrhea Comment: Suspect in setting of abx. Remove rectal tube 10/06 c. diff negative lactoferrin positive CT A/P performed because of 2 days indication there was pain without obvious source of pain nor intraabdominal inflammation (3) Acute kidney injury Comment: resolved (4) CLL (chronic lymphocytic leukemia) Comment: Contributes to difficulty interpreting WBC add ESR, CRP, and procalcitonin. Neutrophilic component declining (5) Elevated troponin Comment: suspected demand in setting of sever sepsis present on admission No indication for stress at this point (6) Encephalopathy acute Comment: Multifactoral including critical illness, hypoxia, PNA with underlying dementia. Improving (7) DVT prophylaxis Comment: HSQ
[2016-10-07] MEDS: Heparin VIAL(*) 5000 UNITS/ML VIAL (FIVE THOUSAND) SUBCUT SCH ×3 (05:13→21:40)
[2016-10-07 06:21] LABS: Hematocrit 35 % (35-47); Hemoglobin 11.4 g/dl (12.0-16.0); Mean Corpuscular HGB Conc 33 g/dl (31-36); Mean Corpuscular Hemoglobin 28 pg (27-31); Mean Corpuscular Volume 87 fL (80-97); Mean Platelet Volume 9 um3 (7.4-10.4); Red Blood Count 4.04 10^6/ul (4.0-5.4); Red Cell Distribution Width 16 % (10.5-15)
[2016-10-07 06:27] LABS: Add Diff/Slide Review? Slide Review Added; Comments Flag Yes; White Blood Count 31.7 10^3/ul (3.5-10.8)
[2016-10-07 06:45] LABS: Albumin 2.8 g/dL (3.2-5.2); BUN/Creatinine Ratio 24.2 (8-20); Calcium 8.5 mg/dL (8.6-10.3); Direct Bilirubin 0.1 mg/dL (0.03-0.18); EGFR African American 111.1 (>60); EGFR Non-African American 86.4 (>60); Globulin 3.3 g/dL (2-4); Indirect Bilirubin 0.3 mg/dL (0.3-1.0); Total Bilirubin 0.4 mg/dL (0.2-1.0); Total Protein 6.1 g/dL (6.4-8.9)
--- NOTE | 2016-10-07 08:27 | PN ---
Subjective Date of Service: 10/07/16 Interval History: Pt will not vocalize any answers however she does shake her head no to being in pain and nods to feeling SOB. When the patient gave me these answers she seemed very lethargic and irritated that I was addressing her. She tried to pinch and hit at me while I was trying to talk to her and examine her. The patient reportedly had 5 diarrheal bowel movements since the rectal tube was removed yesterday at noon. Objective Active Medications: Acetaminophen (Tylenol Tab*) 650 mg PO Q6H PRN PRN Reason: PAIN Last Admin: 10/06/16 09:57 Dose: 650 mg Albuterol/Ipratropium (Duoneb Neb.Sophia*) 1 neb INH Q4H PRN PRN Reason: SOB/WHEEZING Last Admin: 10/02/16 00:43 Dose: 1 neb Famotidine (Pepcid Tab*) 20 mg PO BID [facility] Last Admin: 10/06/16 20:35 Dose: 20 mg Heparin Sodium (Porcine) (Heparin Vial(*)) 5,000 units SUBCUT Q8HR [facility] Last Admin: 10/07/16 05:13 Dose: 5,000 units Heparin Sodium (Porcine) (Heparin Flush Picc/Ml/Cvc(*)) 1 - 3 ml FLUSH 0600, 1800 [facility] PRN Reason: Protocol Last Admin: 10/07/16 05:12 Dose: 1 ml Hydralazine HCl (Apresoline Iv*) 10 mg IV Q4H PRN PRN Reason: Systolic >175 Last Admin: 10/02/16 22:19 Dose: 10 mg Dextrose/Sodium Chloride (D5ns 0.9% 1000 Ml Bag*) 1,000 mls @ 10 mls/hr IV PER RATE [facility] Last Admin: 10/05/16 09:03 Dose: 10 mls/hr Ondansetron HCl (Zofran Inj*) 4 mg IV Q6H PRN PRN Reason: NAUSEA Last Admin: 10/01/16 08:25 Dose: 4 mg Vital Signs 10/06/16 10/06/16 10/06/16 09:34 11:38 15:25 Temperature 98.5 F 96.7 F Pulse Rate 86 90 89 Respiratory 14 20 22 Rate Blood Pressure 117/47 128/63 (mmHg) O2 Sat by Pulse 92 93 95 Oximetry 10/06/16 10/06/16 10/06/16 20:00 20:02 20:30 Temperature 97.5 F Pulse Rate 94 95 Respiratory 18 18 Rate Blood Pressure 110/52 (mmHg) O2 Sat by Pulse 92 91 Oximetry 10/06/16 10/07/16 10/07/16 23:39 03:49 07:21 Temperature 97.4 F 98.7 F 98.2 F Pulse Rate 95 87 87 Respiratory 20 20 16 Rate Blood Pressure 120/45 113/53 120/49 (mmHg) O2 Sat by Pulse 91 91 88 Oximetry 10/07/16 07:57 Temperature Pulse Rate Respiratory 20 Rate Blood Pressure (mmHg) O2 Sat by Pulse 91 Oximetry Oxygen Devices in Use Now: Simple Face Mask - 5L-95% Appearance: Elderly female lying in bed, poorly responsive-required light sternal rub to get patient to open her eyes. She repeated closed her eyes and either refused to interact or was too somnolent to interact. NAD. Eyes: No Scleral Icterus Ears/Nose/Mouth/Throat: Mucous Membranes Moist Respiratory: Symmetrical Chest Expansion and Respiratory Effort, Clear to Auscultation - poor effort though lungs sound clear to the bases- perhaps slightly decreased breath sounds at the bases. Cardiovascular: NL Sounds; No Murmurs; No JVD, RRR, No Edema Abdominal: NL Sounds; No Tenderness; No Distention - pt hits at my hand when I am palpating her abdomen but she does not grimmace or appear to be in pain with palpation Extremities: No Clubbing, Cyanosis Skin: No Rash or Ulcers, No Nodules or Sclerosis Neurological: - - somnolent Result Diagrams: 10/07/16 05:43 10/07/16 05:43 Additional Lab and Data: Lab Results 09/25/16 09/25/16 09/25/16 Range/Units 11:51 11:51 11:51 WBC 43.4 H (3.5-10.8) 10^3/ul RBC 5.29 (4.0-5.4) 10^6/ul Hgb 14.7 (12.0-16.0) g/dl Hct 47 (35-47) % MCV 89 (80-97) fL MCH 28 (27-31) pg MCHC 32 (31-36) g/dl RDW 15 (10.5-15) % Plt Count 286 (150-450) 10^3/ul MPV 10 (7.4-10.4) um3 Neut % (Auto) 25.7 L (38-83) % Lymph % (Auto) 72.1 H (25-47) % Storey % (Auto) 2.2 (1-9) % Eos % (Auto) 0 (0-6) % Baso % (Auto) 0 (0-2) % Absolute Neuts (auto) 11.1 H (1.5-7.7) 10^3/ul Absolute Lymphs (auto) 31.3 H (1.0-4.8) 10^3/ul Absolute Monos (auto) 1.0 H (0-0.8) 10^3/ul Absolute Eos (auto) 0 (0-0.6) 10^3/ul Absolute Basos (auto) 0 (0-0.2) 10^3/ul Absolute Nucleated RBC 0.05 10^3/ul Nucleated RBC % 0.1 INR (Anticoag Therapy) 1.29 H (0.89-1.11) APTT 26.8 (26.0-36.3) seconds VBG pH (7.33-7.43) VBG pCO2 (41-51) mmHg VBG pO2 (35-45) mmHg VBG HCO3 (24-28) mmol/L VBG O2 Saturation (70-80) % VBG Base Excess (0-4) Sodium (133-145) mmol/L Potassium (3.5-5.0) mmol/L Chloride (101-111) mmol/L Carbon Dioxide (22-32) mmol/L Anion Gap (2-11) mmol/L BUN (6-24) mg/dL Creatinine (0.51-0.95) mg/dL Est GFR ( Amer) (>60) Est GFR (Non-Af Amer) (>60) BUN/Creatinine Ratio (8-20) Glucose (70-100) mg/dL Lactic Acid (0.5-2.0) mmol/L Calcium (8.6-10.3) mg/dL Phosphorus (2.5-5.0) mg/dL Magnesium (1.9-2.7) mg/dL Total Bilirubin (0.2-1.0) mg/dL AST (13-39) U/L ALT (7-52) U/L Alkaline Phosphatase (34-104) U/L Troponin I (<0.04) ng/mL B-Natriuretic Peptide ( - 100) pg/mL Total Protein (6.4-8.9) g/dL Albumin (3.2-5.2) g/dL Globulin (2-4) g/dL Albumin/Globulin Ratio (1-3) Urine Color Kira Urine Appearance Cloudy Urine pH 5.0 (5-9) Ur Specific Dema 1.028 (1.010-1.030) Urine Protein 2+(100 mg/dl) H (Negative) Urine Ketones 1+ H (Negative) Urine Blood 2+ H (Negative) Urine Nitrate Negative (Negative) Urine Bilirubin Negative (Negative) Urine Urobilinogen Negative (Negative) Ur Leukocyte Esterase Negative (Negative) Urine WBC (Auto) 2+(11-20/hpf) H (Absent) Urine RBC (Auto) 3+(>10/hpf) H (Absent) Urine Bacteria Absent (Absent) Urine Glucose Negative (Negative) Urine Ascorbic Acid * H (Negative) Influenza A (Rapid) (Negative) Influenza B (Rapid) (Negative) 09/25/16 09/25/16 09/25/16 Range/Units 11:51 11:51 11:51 WBC (3.5-10.8) 10^3/ul RBC (4.0-5.4) 10^6/ul Hgb (12.0-16.0) g/dl Hct (35-47) % MCV (80-97) fL MCH (27-31) pg MCHC (31-36) g/dl RDW (10.5-15) % Plt Count (150-450) 10^3/ul MPV (7.4-10.4) um3 Neut % (Auto) (38-83) % Lymph % (Auto) (25-47) % Storey % (Auto) (1-9) % Eos % (Auto) (0-6) % Baso % (Auto) (0-2) % Absolute Neuts (auto) (1.5-7.7) 10^3/ul Absolute Lymphs (auto) (1.0-4.8) 10^3/ul Absolute Monos (auto) (0-0.8) 10^3/ul Absolute Eos (auto) (0-0.6) 10^3/ul Absolute Basos (auto) (0-0.2) 10^3/ul Absolute Nucleated RBC 10^3/ul Nucleated RBC % INR (Anticoag Therapy) (0.89-1.11) APTT (26.0-36.3) seconds VBG pH (7.33-7.43) VBG pCO2 (41-51) mmHg VBG pO2 (35-45) mmHg VBG HCO3 (24-28) mmol/L VBG O2 Saturation (70-80) % VBG Base Excess (0-4) Sodium 152 H (133-145) mmol/L Potassium 3.4 L (3.5-5.0) mmol/L Chloride 112 H (101-111) mmol/L Carbon Dioxide 27 (22-32) mmol/L Anion Gap 13 H (2-11) mmol/L BUN 40 H (6-24) mg/dL Creatinine 1.02 H (0.51-0.95) mg/dL Est GFR ( Amer) 67.2 (>60) Est GFR (Non-Af Amer) 52.3 (>60) BUN/Creatinine Ratio 39.2 H (8-20) Glucose 137 H (70-100) mg/dL Lactic Acid 3.0 H* (0.5-2.0) mmol/L Calcium 9.4 (8.6-10.3) mg/dL Phosphorus 3.3 (2.5-5.0) mg/dL Magnesium 2.6 (1.9-2.7) mg/dL Total Bilirubin 0.60 (0.2-1.0) mg/dL AST 18 (13-39) U/L ALT 12 (7-52) U/L Alkaline Phosphatase 66 (34-104) U/L Troponin I 0.14 H* (<0.04) ng/mL B-Natriuretic Peptide 458 H ( - 100) pg/mL Total Protein 6.8 (6.4-8.9) g/dL Albumin 3.0 L (3.2-5.2) g/dL Globulin 3.8 (2-4) g/dL Albumin/Globulin Ratio 0.8 L (1-3) Urine Color Urine Appearance Urine pH (5-9) Ur Specific Dema (1.010-1.030) Urine Protein (Negative) Urine Ketones (Negative) Urine Blood (Negative) Urine Nitrate (Negative) Urine Bilirubin (Negative) Urine Urobilinogen (Negative) Ur Leukocyte Esterase (Negative) Urine WBC (Auto) (Absent) Urine RBC (Auto) (Absent) Urine Bacteria (Absent) Urine Glucose (Negative) Urine Ascorbic Acid (Negative) Influenza A (Rapid) (Negative) Influenza B (Rapid) (Negative) 09/25/16 09/25/16 Range/Units 12:27 13:05 WBC (3.5-10.8) 10^3/ul RBC (4.0-5.4) 10^6/ul Hgb (12.0-16.0) g/dl Hct (35-47) % MCV (80-97) fL MCH (27-31) pg MCHC (31-36) g/dl RDW (10.5-15) % Plt Count (150-450) 10^3/ul MPV (7.4-10.4) um3 Neut % (Auto) (38-83) % Lymph % (Auto) (25-47) % Storey % (Auto) (1-9) % Eos % (Auto) (0-6) % Baso % (Auto) (0-2) % Absolute Neuts (auto) (1.5-7.7) 10^3/ul Absolute Lymphs (auto) (1.0-4.8) 10^3/ul Absolute Monos (auto) (0-0.8) 10^3/ul Absolute Eos (auto) (0-0.6) 10^3/ul Absolute Basos (auto) (0-0.2) 10^3/ul Absolute Nucleated RBC 10^3/ul Nucleated RBC % INR (Anticoag Therapy) (0.89-1.11) APTT (26.0-36.3) seconds VBG pH 7.45 H (7.33-7.43) VBG pCO2 39 L (41-51) mmHg VBG pO2 57 H (35-45) mmHg VBG HCO3 27.0 (24-28) mmol/L VBG O2 Saturation 91.0 H (70-80) % VBG Base Excess 3.0 (0-4) Sodium (133-145) mmol/L Potassium (3.5-5.0) mmol/L Chloride (101-111) mmol/L Carbon Dioxide (22-32) mmol/L Anion Gap (2-11) mmol/L BUN (6-24) mg/dL Creatinine (0.51-0.95) mg/dL Est GFR ( Amer) (>60) Est GFR (Non-Af Amer) (>60) BUN/Creatinine Ratio (8-20) Glucose (70-100) mg/dL Lactic Acid (0.5-2.0) mmol/L Calcium (8.6-10.3) mg/dL Phosphorus (2.5-5.0) mg/dL Magnesium (1.9-2.7) mg/dL Total Bilirubin (0.2-1.0) mg/dL AST (13-39) U/L ALT (7-52) U/L Alkaline Phosphatase (34-104) U/L Troponin I (<0.04) ng/mL B-Natriuretic Peptide ( - 100) pg/mL Total Protein (6.4-8.9) g/dL Albumin (3.2-5.2) g/dL Globulin (2-4) g/dL Albumin/Globulin Ratio (1-3) Urine Color Urine Appearance Urine pH (5-9) Ur Specific Dema (1.010-1.030) Urine Protein (Negative) Urine Ketones (Negative) Urine Blood (Negative) Urine Nitrate (Negative) Urine Bilirubin (Negative) Urine Urobilinogen (Negative) Ur Leukocyte Esterase (Negative) Urine WBC (Auto) (Absent) Urine RBC (Auto) (Absent) Urine Bacteria (Absent) Urine Glucose (Negative) Urine Ascorbic Acid (Negative) Influenza A (Rapid) Negative (Negative) Influenza B (Rapid) Negative (Negative) Microbiology and Other Data: Microbiology 09/29/16 08:34 Stool Gross Appearance - Final Stool C. difficile DNA Amplification - Final 027 Presumptive NEGATIVE Toxigenic C.diff NEGATIVE 09/25/16 17:50 Nasal Screen MRSA (PCR)(MARY) - Final Nasal Mrsa Negative Assess/Plan/Problems-Billing Ms Calixto is a 81 yo F who has a h/o CLL, dementia, HTN, HLD and peripheral vascular disease who presented to the ER with c/o declining functional status from [facility] and was found to be septic secondary to a presumed pneumonia with associated acute hypoxic respiratory failure. - Patient Problems (1) Diarrhea Current Visit: Yes Status: Acute Code(s): R19.7 - DIARRHEA, UNSPECIFIED SNOMED Code(s): 35818297 Comment: C diff earlier on was negative. CT abd/pelvis without clear finding of colitis. Reportedly her diarrhea has been improving. Continue to monitor degree of diarrhea. (2) Encephalopathy acute Current Visit: Yes Status: Acute Code(s): G93.40 - ENCEPHALOPATHY, UNSPECIFIED SNOMED Code(s): 9349993 Comment: The patient's mental status does not seem to be back to baseline. Will discuss with her family when they arrive today. ? secondary to ICU stay, delirium and underlying dementia. (3) Acute respiratory failure with hypoxia Current Visit: Yes Status: Acute Code(s): J96.01 - ACUTE RESPIRATORY FAILURE WITH HYPOXIA SNOMED Code(s): 77525049 Comment: The patient's acute hypoxic respiratory failure secondary to pneumonia is improving. She repeatedly pulls off the face mask and nasal canula and her sats drop to the mid 80's however with 3L O2 her saturation is 93-94%. Part of her respiratory failure is felt to also be secondary to pulmonary edema secondary to aggressive hydration early on this hospitalization-likely related to diastolic HF. (4) Sepsis Current Visit: Yes Status: Acute Comment: On admission the patient met sepsis 2 criteria for severe sepsis with infiltrate on CXR, fever, tachycardia and tachypnea. She met sepsis 3 criteria with a SOFA score of 2. Her sepsis was felt to be secondary to pneumonia. Sepsis has now resolved. (5) Pneumonia Current Visit: Yes Status: Acute Code(s): J18.9 - PNEUMONIA, UNSPECIFIED ORGANISM SNOMED Code(s): 666536413 Comment: The patient was treated for 7 days with zosyn and azithromycin for presumed pneumonia though it was felt to be most likely a viral pneumonia. Currently her respiratory status is stable to slightly improving. (6) Acute kidney injury Current Visit: Yes Status: Acute Code(s): N17.9 - ACUTE KIDNEY FAILURE, UNSPECIFIED SNOMED Code(s): 78174138 Comment: The patient's creatinine on admission was almost twice her baseline. EMILY has resolved with aggressive IVF hydration. (7) Elevated troponin Current Visit: Yes Status: Acute Code(s): R79.89 - OTHER SPECIFIED ABNORMAL FINDINGS OF BLOOD CHEMISTRY SNOMED Code(s): 016775708 Comment: Troponin on 09/25/16 elevated at 0.14, trended down to 0.08 on . Likely secondary to demand ischemia secondary to sepsis that was present on admission. No further work up at this time. She did have an echo earlier this stay that showed a hypokinetic to ankinetic inferior to posterior wall at the base. On EKG 10/2013 she had Q waves in the inferior leads making me believe the findings on the echo are likely secondary to an old event. (8) CLL (chronic lymphocytic leukemia) Current Visit: Yes Status: Acute Code(s): C91.10 - CHRONIC LYMPHOCYTIC LEUK OF B-CELL TYPE NOT ACHIEVE REMIS SNOMED Code(s): 46970144 Comment: WBC remains markedly elevated. Her history of CLL makes interpreting her WBC count elevation difficult. Procalcitonin on 10/05/16 was 0.04 making infection as cause of WBC count elevation less likely. Continue to monitor. (9) HTN (hypertension) Current Visit: Yes Status: Acute Code(s): I10 - ESSENTIAL (PRIMARY) HYPERTENSION SNOMED Code(s): 87356274 Comment: BP is under good control on no medications-she is not on anything at the [place]. Monitor. (10) Hyperlipidemia Current Visit: Yes Status: Acute Code(s): E78.5 - HYPERLIPIDEMIA, UNSPECIFIED SNOMED Code(s): 81021241 Comment: Statin has been on hold and currently I am not sure she is alert enough to take the medication. Will order it and if she is alert enough she can receive it starting today. (11) Dementia Current Visit: Yes Status: Acute Code(s): F03.90 - UNSPECIFIED DEMENTIA WITHOUT BEHAVIORAL DISTURBANCE SNOMED Code(s): 82798646 Comment: Unclear how much her dementia is currently impacting her mental status and somnolence. She reportedly has waxed and waned in her mental status- ? overlying delirium. Will resume aricept if she is awake enough to take the medication. (12) DVT prophylaxis Current Visit: Yes Status: Acute Code(s): ZZO6859 - SNOMED Code(s): 283310305 Comment: SQ heparin (13) DNR (do not resuscitate) Current Visit: Yes Status: Acute Comment: DNR with a trial of intubation
[2016-10-07] MEDS ORDERED: Atorvastatin* 10 MG TAB PO SCH (09:00)
[2016-10-07] MEDS: Donepezil TAB* 5 MG PO SCH (09:16)
[2016-10-07] MEDS: Famotidine TAB* 20 MG PO SCH ×2 (09:16→20:12)
--- NOTE | 2016-10-07 12:59 | CONS ---
CC: Primary Care Physician, [facility] PALLIATIVE CARE CONSULTATION REPORT: DATE OF CONSULT: 10/07/16 PRIMARY CARE PHYSICIAN: At [facility]. REQUESTING PHYSICIAN FOR CONSULT: Dr. Madina Diaz. REASON FOR CONSULT: To evaluate the MOLST form and eligibility for hospice. HISTORY OF PRESENT ILLNESS: This is a 81-year-old female with a past medical history of dementia, CLL, hypertension, diastolic heart failure, who presented to the emergency room from [facility] with fever and found to have sepsis secondary to pneumonia. The patient was initially admitted to the ICU, placed on IV fluids, empiric antibiotics, BiPAP, and improved in her pneumonia and completed a 7-day course of antibiotics. The patient has had a prolonged hospital course including an ICU course. Her hospital course has been complicated by diarrhea, which was felt to be antibiotic-associated diarrhea. The C. diff is negative. She also initially had acute kidney injury which has since resolved. She does have a history of CLL, stage 2, no treatment is indicated and she also had elevated troponin level, which is thought to be in the setting of demand ischemia with no significant findings on her echocardiogram. She has had indolent acute encephalopathy during her hospital course and there was concern for her inability to improve from this. On my encounter, the patient awakes easily. She is very hard of hearing and possible appears to be a language barrier. She was able to answer a few questions when I wrote them down to her. She denied any pain. She was able to tell me her name. She did state, when I asked her where she was, she says she was in [place]. She was not able to tell me who her healthcare proxy was. Otherwise , review of systems is limited due to as mentioned. I did put a call into the son, Rayshawn Calixto, but there was no answer. It appears on her healthcare proxy form he is the primary proxy and secondary is Daphnie. PAST MEDICAL HISTORY: Dementia; CLL; hypertension; diastolic heart failure; history of peripheral vascular disease, status post left CEA; history of communicating hydrocephalus; hyperlipidemia. MEDICATIONS: Home medications: 1. Simvastatin 20 mg every other day. 2. Vitamin B12 1000 mcg IM monthly. 3. Celexa 10 mg p.o. daily. 4. Aspirin 81 mg daily. 5. Multivitamin 1 tab daily. 6. Aricept 10 mg daily. Hospitalized medications: 1. Tylenol 650 mg every 6 hours as needed. 2. DuoNeb every 4 hours as needed. 3. Lipitor 20 mg every other day. 4. D5 normal saline at 10 mL an hour. 5. Aricept 10 mg daily. 6. Famotidine 20 mg p.o. b.i.d. 7. Heparin 5000 units subcu q.8 hours. 8. Zofran 4 mg IV q.6 hours as needed. ALLERGIES: FLU VACCINE, THIMEROSAL, TUBERCULIN PURIFIED PROTEIN DERIVATIVES. FAMILY HISTORY: Unable to obtain. SOCIAL HISTORY: As mentioned, the patient was a resident at [facility], it appears that the family does not want her to return there. Her MOLST form currently states do not resuscitate with the trial intubation. Her primary proxy is her son, Rayshawn Calixto. REVIEW OF SYSTEMS: Limited as mentioned in the HPI. PHYSICAL EXAM: Vitals: Temp 98.2, pulse rate 84, respiratory rate 14, oxygen saturation 91% on room air, blood pressure 120/49. General: In no acute distress, resting comfortably. HEENT: Neck supple. No lymphadenopathy. Pupils are equal and reactive, anicteric. Head normocephalic. Cardiac: Regular rate and rhythm. Soft systolic murmur heard throughout. Respiratory: Diminished breath sounds. No wheezing, rhonchi, or rales. Abdomen: Soft, nontender, and nondistended. Extremities: No clubbing, cyanosis, or edema. +1 DP. Neurologic: The patient is alert and oriented x1, oriented to self only. No gross focal neurologic deficits. Difficult to answer questions and follow commands appropriately. LABORATORY DATA: White count 31.7, hemoglobin 11.4, hematocrit 35, platelets 250. Sodium 139, potassium 4, chloride 104, bicarb 29, BUN 16, creatinine 0.66, glucose 109, calcium 8.5, albumin is 2.8. ASSESSMENT: This is a 81-year-old female with past medical history of dementia , chronic lymphocytic leukemia, hypertension, who presented to the emergency room from [facility] with acute respiratory failure, was admitted to the ICU and placed on BiPAP. Her respiratory failure and pneumonia have improved; however, she continues to have lingering metabolic encephalopathy, although on my encounter, she appeared appropriate and alert. The concern is for language barrier and difficulty with hearing to be able to communicate with her appropriately. I did put in a call to her son, but was unable to reach him at this time. RECOMMENDATIONS: At this time, the patient is not a candidate for hospice. I am happy to touch base with the son again to review the MOLST form and get a more accurate history as to her baseline mental status and how it compares to where she is right now. She may be a good candidate for PATH referral for followup as outpatient palliative care. Thank you for this consultation. PATIENT TIME: Greater than 45 minutes was spent doing this consultation, more than half the time spent in direct patient contact. [id number]/CPS #: [id number] ADDENDUM: Spoke with the health care proxy, Rayshawn who is patient' son. She has had a gradual decline in her cognitive status over the past few months and dementia started 4 years ago when her . She often gets upset and states she wants to . Discussed possibility of hypomanic delirium and/or underlying depression. LUCERO
[2016-10-08] MEDS: Acetaminophen TAB* 325 MG PO PRN ×2 (00:45→08:08)
[2016-10-08] MEDS: Heparin VIAL(*) 5000 UNITS/ML VIAL (FIVE THOUSAND) SUBCUT SCH (05:10)
[2016-10-08 07:45] VITALS: BP 110/49
[2016-10-08] MEDS: Famotidine TAB* 20 MG PO SCH (08:08)
[2016-10-08] MEDS: Donepezil TAB* 5 MG PO SCH (08:08)
--- NOTE | 2016-10-08 09:44 | PN ---
Subjective Date of Service: 10/08/16 Interval History: Pt is sleepy but does awaken. She admits to feeling hungry. She denies any pain until the exam when she nods yes to pain when I palpate her abdomen. Objective Active Medications: Acetaminophen (Tylenol Tab*) 650 mg PO Q6H PRN PRN Reason: PAIN Last Admin: 10/08/16 08:08 Dose: 650 mg Albuterol/Ipratropium (Duoneb Neb.Sophia*) 1 neb INH Q4H PRN PRN Reason: SOB/WHEEZING Last Admin: 10/02/16 00:43 Dose: 1 neb Atorvastatin Calcium (Lipitor*) 20 mg PO EVERY OTHER DAY [facility] Last Admin: 10/07/16 09:16 Dose: 20 mg Donepezil HCl (Aricept Tab*) 10 mg PO DAILY [facility] Last Admin: 10/08/16 08:08 Dose: 10 mg Famotidine (Pepcid Tab*) 20 mg PO BID [facility] Last Admin: 10/08/16 08:08 Dose: 20 mg Heparin Sodium (Porcine) (Heparin Vial(*)) 5,000 units SUBCUT Q8HR [facility] Last Admin: 10/08/16 05:10 Dose: 5,000 units Heparin Sodium (Porcine) (Heparin Flush Picc/Ml/Cvc(*)) 1 - 3 ml FLUSH 0600, 1800 [facility] PRN Reason: Protocol Last Admin: 10/08/16 05:07 Dose: 1 ml Dextrose/Sodium Chloride (D5ns 0.9% 1000 Ml Bag*) 1,000 mls @ 10 mls/hr IV PER RATE [facility] Last Admin: 10/05/16 09:03 Dose: 10 mls/hr Ondansetron HCl (Zofran Inj*) 4 mg IV Q6H PRN PRN Reason: NAUSEA Last Admin: 10/01/16 08:25 Dose: 4 mg Vital Signs 10/07/16 10/07/16 10/07/16 11:09 15:26 19:31 Temperature 98.3 F 98.1 F 98.8 F Pulse Rate 82 85 102 Respiratory 20 16 17 Rate Blood Pressure 92/49 93/52 132/63 (mmHg) O2 Sat by Pulse 95 94 97 Oximetry 10/07/16 10/08/16 10/08/16 20:00 00:18 03:51 Temperature 100.3 F 98.6 F Pulse Rate 98 88 Respiratory 17 20 20 Rate Blood Pressure 124/59 131/53 (mmHg) O2 Sat by Pulse 90 96 Oximetry 10/08/16 10/08/16 10/08/16 06:07 07:39 08:24 Temperature Pulse Rate 80 91 Respiratory 18 16 16 Rate Blood Pressure 110/49 (mmHg) O2 Sat by Pulse 92 88 88 Oximetry Oxygen Devices in Use Now: Nasal Cannula - 88%-RA Appearance: Elderly female sitting up in bed, sleeping, awakens to voice and touch, NAD Eyes: No Scleral Icterus Ears/Nose/Mouth/Throat: Mucous Membranes Moist Respiratory: Symmetrical Chest Expansion and Respiratory Effort, Clear to Auscultation Cardiovascular: NL Sounds; No Murmurs; No JVD, RRR, No Edema Abdominal: NL Sounds; No Tenderness; No Distention Extremities: No Clubbing, Cyanosis Skin: No Rash or Ulcers, No Nodules or Sclerosis Neurological: - - pleasantly confused, pushes at my hand when I palpate her abdomen Result Diagrams: 10/07/16 05:43 10/07/16 05:43 Additional Lab and Data: Lab Results 09/25/16 09/25/16 09/25/16 Range/Units 11:51 11:51 11:51 WBC 43.4 H (3.5-10.8) 10^3/ul RBC 5.29 (4.0-5.4) 10^6/ul Hgb 14.7 (12.0-16.0) g/dl Hct 47 (35-47) % MCV 89 (80-97) fL MCH 28 (27-31) pg MCHC 32 (31-36) g/dl RDW 15 (10.5-15) % Plt Count 286 (150-450) 10^3/ul MPV 10 (7.4-10.4) um3 Neut % (Auto) 25.7 L (38-83) % Lymph % (Auto) 72.1 H (25-47) % [place] % (Auto) 2.2 (1-9) % Eos % (Auto) 0 (0-6) % Baso % (Auto) 0 (0-2) % Absolute Neuts (auto) 11.1 H (1.5-7.7) 10^3/ul Absolute Lymphs (auto) 31.3 H (1.0-4.8) 10^3/ul Absolute Monos (auto) 1.0 H (0-0.8) 10^3/ul Absolute Eos (auto) 0 (0-0.6) 10^3/ul Absolute Basos (auto) 0 (0-0.2) 10^3/ul Absolute Nucleated RBC 0.05 10^3/ul Nucleated RBC % 0.1 INR (Anticoag Therapy) 1.29 H (0.89-1.11) APTT 26.8 (26.0-36.3) seconds VBG pH (7.33-7.43) VBG pCO2 (41-51) mmHg VBG pO2 (35-45) mmHg VBG HCO3 (24-28) mmol/L VBG O2 Saturation (70-80) % VBG Base Excess (0-4) Sodium (133-145) mmol/L Potassium (3.5-5.0) mmol/L Chloride (101-111) mmol/L Carbon Dioxide (22-32) mmol/L Anion Gap (2-11) mmol/L BUN (6-24) mg/dL Creatinine (0.51-0.95) mg/dL Est GFR ( Amer) (>60) Est GFR (Non-Af Amer) (>60) BUN/Creatinine Ratio (8-20) Glucose (70-100) mg/dL Lactic Acid (0.5-2.0) mmol/L Calcium (8.6-10.3) mg/dL Phosphorus (2.5-5.0) mg/dL Magnesium (1.9-2.7) mg/dL Total Bilirubin (0.2-1.0) mg/dL AST (13-39) U/L ALT (7-52) U/L Alkaline Phosphatase (34-104) U/L Troponin I (<0.04) ng/mL B-Natriuretic Peptide ( - 100) pg/mL Total Protein (6.4-8.9) g/dL Albumin (3.2-5.2) g/dL Globulin (2-4) g/dL Albumin/Globulin Ratio (1-3) Urine Color [place] Urine Appearance Cloudy Urine pH 5.0 (5-9) Ur Specific [place] 1.028 (1.010-1.030) Urine Protein 2+(100 mg/dl) H (Negative) Urine Ketones 1+ H (Negative) Urine Blood 2+ H (Negative) Urine Nitrate Negative (Negative) Urine Bilirubin Negative (Negative) Urine Urobilinogen Negative (Negative) Ur Leukocyte Esterase Negative (Negative) Urine WBC (Auto) 2+(11-20/hpf) H (Absent) Urine RBC (Auto) 3+(>10/hpf) H (Absent) Urine Bacteria Absent (Absent) Urine Glucose Negative (Negative) Urine Ascorbic Acid * H (Negative) Influenza A (Rapid) (Negative) Influenza B (Rapid) (Negative) 09/25/16 09/25/16 09/25/16 Range/Units 11:51 11:51 11:51 WBC (3.5-10.8) 10^3/ul RBC (4.0-5.4) 10^6/ul Hgb (12.0-16.0) g/dl Hct (35-47) % MCV (80-97) fL MCH (27-31) pg MCHC (31-36) g/dl RDW (10.5-15) % Plt Count (150-450) 10^3/ul MPV (7.4-10.4) um3 Neut % (Auto) (38-83) % Lymph % (Auto) (25-47) % [place] % (Auto) (1-9) % Eos % (Auto) (0-6) % Baso % (Auto) (0-2) % Absolute Neuts (auto) (1.5-7.7) 10^3/ul Absolute Lymphs (auto) (1.0-4.8) 10^3/ul Absolute Monos (auto) (0-0.8) 10^3/ul Absolute Eos (auto) (0-0.6) 10^3/ul Absolute Basos (auto) (0-0.2) 10^3/ul Absolute Nucleated RBC 10^3/ul Nucleated RBC % INR (Anticoag Therapy) (0.89-1.11) APTT (26.0-36.3) seconds VBG pH (7.33-7.43) VBG pCO2 (41-51) mmHg VBG pO2 (35-45) mmHg VBG HCO3 (24-28) mmol/L VBG O2 Saturation (70-80) % VBG Base Excess (0-4) Sodium 152 H (133-145) mmol/L Potassium 3.4 L (3.5-5.0) mmol/L Chloride 112 H (101-111) mmol/L Carbon Dioxide 27 (22-32) mmol/L Anion Gap 13 H (2-11) mmol/L BUN 40 H (6-24) mg/dL Creatinine 1.02 H (0.51-0.95) mg/dL Est GFR ( Amer) 67.2 (>60) Est GFR (Non-Af Amer) 52.3 (>60) BUN/Creatinine Ratio 39.2 H (8-20) Glucose 137 H (70-100) mg/dL Lactic Acid 3.0 H* (0.5-2.0) mmol/L Calcium 9.4 (8.6-10.3) mg/dL Phosphorus 3.3 (2.5-5.0) mg/dL Magnesium 2.6 (1.9-2.7) mg/dL Total Bilirubin 0.60 (0.2-1.0) mg/dL AST 18 (13-39) U/L ALT 12 (7-52) U/L Alkaline Phosphatase 66 (34-104) U/L Troponin I 0.14 H* (<0.04) ng/mL B-Natriuretic Peptide 458 H ( - 100) pg/mL Total Protein 6.8 (6.4-8.9) g/dL Albumin 3.0 L (3.2-5.2) g/dL Globulin 3.8 (2-4) g/dL Albumin/Globulin Ratio 0.8 L (1-3) Urine Color Urine Appearance Urine pH (5-9) Ur Specific [place] (1.010-1.030) Urine Protein (Negative) Urine Ketones (Negative) Urine Blood (Negative) Urine Nitrate (Negative) Urine Bilirubin (Negative) Urine Urobilinogen (Negative) Ur Leukocyte Esterase (Negative) Urine WBC (Auto) (Absent) Urine RBC (Auto) (Absent) Urine Bacteria (Absent) Urine Glucose (Negative) Urine Ascorbic Acid (Negative) Influenza A (Rapid) (Negative) Influenza B (Rapid) (Negative) 09/25/16 09/25/16 Range/Units 12:27 13:05 WBC (3.5-10.8) 10^3/ul RBC (4.0-5.4) 10^6/ul Hgb (12.0-16.0) g/dl Hct (35-47) % MCV (80-97) fL MCH (27-31) pg MCHC (31-36) g/dl RDW (10.5-15) % Plt Count (150-450) 10^3/ul MPV (7.4-10.4) um3 Neut % (Auto) (38-83) % Lymph % (Auto) (25-47) % [place] % (Auto) (1-9) % Eos % (Auto) (0-6) % Baso % (Auto) (0-2) % Absolute Neuts (auto) (1.5-7.7) 10^3/ul Absolute Lymphs (auto) (1.0-4.8) 10^3/ul Absolute Monos (auto) (0-0.8) 10^3/ul Absolute Eos (auto) (0-0.6) 10^3/ul Absolute Basos (auto) (0-0.2) 10^3/ul Absolute Nucleated RBC 10^3/ul Nucleated RBC % INR (Anticoag Therapy) (0.89-1.11) APTT (26.0-36.3) seconds VBG pH 7.45 H (7.33-7.43) VBG pCO2 39 L (41-51) mmHg VBG pO2 57 H (35-45) mmHg VBG HCO3 27.0 (24-28) mmol/L VBG O2 Saturation 91.0 H (70-80) % VBG Base Excess 3.0 (0-4) Sodium (133-145) mmol/L Potassium (3.5-5.0) mmol/L Chloride (101-111) mmol/L Carbon Dioxide (22-32) mmol/L Anion Gap (2-11) mmol/L BUN (6-24) mg/dL Creatinine (0.51-0.95) mg/dL Est GFR ( Amer) (>60) Est GFR (Non-Af Amer) (>60) BUN/Creatinine Ratio (8-20) Glucose (70-100) mg/dL Lactic Acid (0.5-2.0) mmol/L Calcium (8.6-10.3) mg/dL Phosphorus (2.5-5.0) mg/dL Magnesium (1.9-2.7) mg/dL Total Bilirubin (0.2-1.0) mg/dL AST (13-39) U/L ALT (7-52) U/L Alkaline Phosphatase (34-104) U/L Troponin I (<0.04) ng/mL B-Natriuretic Peptide ( - 100) pg/mL Total Protein (6.4-8.9) g/dL Albumin (3.2-5.2) g/dL Globulin (2-4) g/dL Albumin/Globulin Ratio (1-3) Urine Color Urine Appearance Urine pH (5-9) Ur Specific [place] (1.010-1.030) Urine Protein (Negative) Urine Ketones (Negative) Urine Blood (Negative) Urine Nitrate (Negative) Urine Bilirubin (Negative) Urine Urobilinogen (Negative) Ur Leukocyte Esterase (Negative) Urine WBC (Auto) (Absent) Urine RBC (Auto) (Absent) Urine Bacteria (Absent) Urine Glucose (Negative) Urine Ascorbic Acid (Negative) Influenza A (Rapid) Negative (Negative) Influenza B (Rapid) Negative (Negative) Microbiology and Other Data: Microbiology 09/29/16 08:34 Stool Gross Appearance - Final Stool C. difficile DNA Amplification - Final 027 Presumptive NEGATIVE Toxigenic C.diff NEGATIVE 09/25/16 17:50 Nasal Screen MRSA (PCR)(MARY) - Final Nasal Mrsa Negative Assess/Plan/Problems-Billing Ms Calixto is a 81 yo F who has a h/o CLL, dementia, HTN, HLD and peripheral vascular disease who presented to the ER with c/o declining functional status from [facility] and was found to be septic secondary to a presumed pneumonia with associated acute hypoxic respiratory failure. - Patient Problems (1) Diarrhea Current Visit: Yes Status: Acute Code(s): R19.7 - DIARRHEA, UNSPECIFIED SNOMED Code(s): 70716985 Comment: Diarrhea appears to be improving. She may have some abdominal discomfort but during palpation she does not grimmace. CT done 10/06/16 did not show any clear findings that could be causing pain. (2) Encephalopathy acute Current Visit: Yes Status: Acute Code(s): G93.40 - ENCEPHALOPATHY, UNSPECIFIED SNOMED Code(s): 4618980 Comment: Mental status appears to be waxing and waning. She seemed easier to awaken today compared to yesterday. I suspect the major component at this time is delirium on top of underlying dementia. She seems stable enough to go to [facility] today. They will need to monitor her closely for worsening mental status however. (3) Acute respiratory failure with hypoxia Current Visit: Yes Status: Acute Code(s): J96.01 - ACUTE RESPIRATORY FAILURE WITH HYPOXIA SNOMED Code(s): 15941645 Comment: The patient's acute hypoxic respiratory failure secondary to pneumonia is improving. She is saturating well on 3L O2. I suspect with more time she will continue to improve. No further Abx needed. (4) Sepsis Current Visit: Yes Status: Acute Comment: On admission the patient met sepsis 2 criteria for severe sepsis with infiltrate on CXR, fever, tachycardia and tachypnea. She met sepsis 3 criteria with a SOFA score of 2. Her sepsis was felt to be secondary to pneumonia. Sepsis has now resolved. (5) Pneumonia Current Visit: Yes Status: Acute Code(s): J18.9 - PNEUMONIA, UNSPECIFIED ORGANISM SNOMED Code(s): 496837662 Comment: The patient was treated for 7 days with zosyn and azithromycin for presumed pneumonia though it was felt to be most likely a viral pneumonia. Currently her respiratory status is stable. (6) Acute kidney injury Current Visit: Yes Status: Acute Code(s): N17.9 - ACUTE KIDNEY FAILURE, UNSPECIFIED SNOMED Code(s): 94138464 Comment: The patient's creatinine on admission was almost twice her baseline. EMILY has resolved with aggressive IVF hydration. (7) Elevated troponin Current Visit: Yes Status: Acute Code(s): R79.89 - OTHER SPECIFIED ABNORMAL FINDINGS OF BLOOD CHEMISTRY SNOMED Code(s): 349522939 Comment: Troponin on 09/25/16 elevated at 0.14, trended down to 0.08 on . Likely secondary to demand ischemia secondary to sepsis that was present on admission. No further work up at this time. She did have an echo earlier this stay that showed a hypokinetic to ankinetic inferior to posterior wall at the base. On EKG 10/2013 she had Q waves in the inferior leads making me believe the findings on the echo are likely secondary to an old event. (8) CLL (chronic lymphocytic leukemia) Current Visit: Yes Status: Acute Code(s): C91.10 - CHRONIC LYMPHOCYTIC LEUK OF B-CELL TYPE NOT ACHIEVE REMIS SNOMED Code(s): 95956384 Comment: WBC remains markedly elevated though not checked today. Her history of CLL makes interpreting her WBC count elevation difficult. Procalcitonin on was 0.04 making infection as cause of WBC count elevation less likely. Continue to monitor- would repeat CBC on 10/11/16. (9) HTN (hypertension) Current Visit: Yes Status: Acute Code(s): I10 - ESSENTIAL (PRIMARY) HYPERTENSION SNOMED Code(s): 71464577 Comment: BP is under good control on no medications-she is not on anything at the CA. Monitor. (10) Hyperlipidemia Current Visit: Yes Status: Acute Code(s): E78.5 - HYPERLIPIDEMIA, UNSPECIFIED SNOMED Code(s): 10030966 Comment: Continue statin. (11) Dementia Current Visit: Yes Status: Acute Code(s): F03.90 - UNSPECIFIED DEMENTIA WITHOUT BEHAVIORAL DISTURBANCE SNOMED Code(s): 65231386 Comment: Unclear how much her dementia is currently impacting her mental status and somnolence. Continue aricept and monitor her mental status. (12) DVT prophylaxis Current Visit: Yes Status: Acute Code(s): THA2054 - SNOMED Code(s): 897932681 Comment: SQ heparin (13) DNR (do not resuscitate) Current Visit: Yes Status: Acute Comment: DNR with a trial of intubation Status and Disposition: d/c to [facility] this AM
--- NOTE | 2016-10-08 12:33 | DS ---
DATE OF ADMISSION: 09/25/2016. DATE OF DISCHARGE: 10/08/2016. PRIMARY CARE PROVIDER: Provider at [facility]. PRINCIPAL DIAGNOSES: 1. Acute hypoxic respiratory failure and sepsis secondary to pneumonia - possibly viral. 2. Dementia. 3. Hospital acquired delirium. 4. Acute kidney injury - resolved. 5. Elevated troponin - demand ischemia. SECONDARY DIAGNOSES: 1. Chronic lymphocytic leukemia. 2. Hypertension. 3. Hyperlipidemia. DISCHARGE MEDICATIONS: 1. Simvastatin 20 mg p.o. every other day. 2. Vitamin B12 1000 mcg IM monthly. 3. Celexa 10 mg p.o. daily. 4. Aspirin 81 mg p.o. daily. 5. Multivitamin one tab p.o. daily. 6. Aricept 10 mg p.o. daily. 7. Tylenol 650 mg p.o. q.6 hours prn pain. HOSPITAL COURSE: Ms. Calixto is a 81-year-old female who presented to the emergency room on 09/25/2016 with altered mental status and functional decline. The patient had previously been ambulatory and talkative and this decline over the last one week with decreased with p.o. intake. On admission, she was found to be septic secondary to a possible right upper lobe pneumonia. The patient was admitted to the Intensive Care Unit due to significant hypoxic respiratory failure. Additionally, the patient was found to have acute kidney injury and an elevated troponin that was felt to be demand ischemia. The patient was treated for seven days with Zosyn and Azithromycin for presumed pneumonia. During the course of the hospitalization, however, it was postulated that perhaps the pneumonia was viral in nature and not bacterial. Overall, the patient's hypoxic respiratory failure and sepsis have resolved. She was requiring high flow oxygen early on; however, currently is stable on 3 liters of oxygen. Of note, due to the patient's dementia, she will frequently pull off the nasal cannula or face mask and her sats will be in the 80s. When the O2 is reapplied , her saturations are within good range. The major issue during the bulk of the hospitalization has been the patient's altered mental status. She has not gotten back to her baseline. Her mental status, however, has improved during the course of her hospitalization; however , she remains very sleepy. The patient is felt to be stable for discharge to [facility] today; however, the staff at [facility] will need to monitor her mental status very closely. One concern would be if the patient's food tray is dropped off while she is sleepy or sleeping and she may not eat. The patient will need assistance for all meals. As the patient has not been out of bed in the last couple weeks, we will leave the Wu catheter in place; however, as she becomes more awake and starts moving, the Wu catheter should be removed at the earliest possibility. The patient, in addition to the above issues, had profuse diarrhea during the course of this hospitalization. Her C. diff testing earlier on was negative. It is felt that the diarrhea is related to the antibiotics utilized for the first seven days of her hospitalization. The diarrhea is improving. The patient was found to have acute kidney injury on admission with her creatinine being elevated at 1.02, up from a baseline of about 0.6. This is now resolved. The patient was also found to have an elevated troponin of 0.14 on admission. This trended down to 0.08. It was felt that this is demand ischemia. Currently, the patient continues to have an elevated white blood cell count. She has a history of CLL and I feel that this is complicating the evaluation of her elevated white blood cell count. A procalcitonin was obtained on 2016 and was negative, making infection less likely. Her white blood cell count will need to be monitored. I have recommended that a CBC be obtained on 10/11/2016. Again, at this point the biggest issue for the patient is her mental status. She does have periods of time when she is alert and bright and pleasantly confused; however, for the bulk of the time she is sleepy, but arousable. The patient's family is very approachable about discussing goals of care and how aggressive to be. If the patient continues to remain in this state or worsens, a discussion should be had with the patient's family about what their goals of care would be. FOLLOW-UP CONCERNS: The patient is being discharge to [facility] today, . ACTIVITY LEVEL: As tolerated. DIET: Regular as tolerated. CONDITION ON DISCHARGE: Poor, but stable. Thirty-five minutes were spent discharging this patient. [id number] #: [id number] [facility]ITAL[facility]is
== END 2016-10-08 13:25 | DRG 871 ==
LOC: ED 11:33 → ICU 13:11 → MEDTELE 10-03 21:57
PROVIDERS: ADMIT Internal Medicine Critical Care Medicine; ATTEND Hospitalist
PROC: 5A09457 Assistance with Respiratory Ventilation, 24-96 Consecutive Hours, Continuous Positive Airway Pressure (ICD-10-PCS; principal; 2016-09-28)
DX: A41.9 Sepsis, unspecified organism (principal); J96.01 Acute respiratory failure with hypoxia; G93.41 Metabolic encephalopathy; N17.9 Acute kidney failure, unspecified; K52.1 Toxic gastroenteritis and colitis; J12.9 Viral pneumonia, unspecified; E87.0 Hyperosmolality and hypernatremia; C91.10 Chronic lymphocytic leukemia of B-cell type not having achieved remission; I50.32 Chronic diastolic (congestive) heart failure; I24.8 Other forms of acute ischemic heart disease; E87.2 Acidosis; I11.0 Hypertensive heart disease with heart failure; F03.90 Unspecified dementia, unspecified severity, without behavioral disturbance, psychotic disturbance, mood disturbance, and anxiety; Z88.8 Allergy status to other drugs, medicaments and biological substances; Z88.7 Allergy status to serum and vaccine; F32.9 Major depressive disorder, single episode, unspecified; I73.9 Peripheral vascular disease, unspecified; R65.20 Severe sepsis without septic shock; Z66 Do not resuscitate; E78.5 Hyperlipidemia, unspecified; T36.95XA Adverse effect of unspecified systemic antibiotic, initial encounter; R41.0 Disorientation, unspecified; Z79.82 Long term (current) use of aspirin
CPT/HCPCS: 36415; 36600; 71010; 74020; 74177; 80048; 80053; 80076; 81003; 81015; 82803; 83605; 83630; 83735; 83880; 84100; 84145; 84484; 85025; 85027; 85060; 85610; 85652; 85730; 86140; 87040; 87045; 87046; 87493; 87502; 87641; 87899; 93005; 93306; 94640; 94660; 94667; 94668; 94760; 99284; A9270-GY; J0360; J0456; J1630; J1644; J1940; J2270; J2405; J2543; J2920; J3370; J3480; J7512; Q9967